=== PATIENT | female | born 1950 | race Caucasian/White ===

== ENCOUNTER 2019-02-03 06:52 | Outpatient (CLI) | payer MEDICARE, MEDICAID | END 2019-02-03 06:53 | disposition critical access hospital (66) | LOC: EMS 06:52 | PROVIDERS: ATTEND Surgery | DX: R06.00 Dyspnea, unspecified (principal); R51 Headache | CPT/HCPCS: A0425; A0427 ==

== ENCOUNTER 2019-02-03 07:11 | Inpatient (IN) | payer MEDICARE, MEDICAID ==
[2019-02-03] MEDS ORDERED: CEFEPIME 2 GM in SODIUM CHLORIDE 0.9% MINIBAG 100 ML IV STA (07:18)
[2019-02-03] MEDS ORDERED: DEXAMETHASONE 10 MG/ML VIAL IVP STA (07:19)
[2019-02-03] MEDS ORDERED: PROCHLORPERAZINE 10 MG/2 ML VIAL IVP STA (07:20)
[2019-02-03] MEDS ORDERED: KETOROLAC 30 MG/ML VIAL IVP STA (07:20)
[2019-02-03] MEDS ORDERED: diphenhydrAMINE INJ 50 MG/ML VIAL IVP STA (07:20)
[2019-02-03] MEDS ORDERED: ALBUTEROL NEB 2.5 MG/3 ML INH STA ×2 (07:21→11:27)
--- NOTE | 2019-02-03 07:24 | ED Physician Documentation ---
PD HPI DYSPNEA - Stated complaint Stated Complaint: SOA - Chief complaint Chief Complaint: Resp - History obtained from History obtained from: Patient - History of Present Illness Timing - onset: How many days ago (3) Timing - onset during: Rest Timing - duration: Days (3) Timing - details: Gradual onset, Still present Inciting event(s): URI Improved by: O2, Inhaler/neb Worsened by: Exertion, Coughing Associated symptoms: Fever, Cough, Wheezing, Other (headache) Similar symptoms before: Diagnosis (COPD) Recently seen: Not recently seen - Additional information Additional information: 68-year-old female with a history of COPD who is a resident of [facility] has developed a cough congestion and fever over the past 3 days. She now has a migraine headache as well. She is brought to the hospital by ambulance with hypoxia and tachycardia with a DuoNeb treatment running. She has some improvement with the DuoNeb. Review of Systems Constitutional: reports: Fever Eyes: denies: Decreased vision Ears: denies: Ear pain Nose: reports: Rhinorrhea / runny nose, Congestion Throat: reports: Sore throat Cardiac: denies: Chest pain / pressure, Palpitations, Pedal edema, Calf pain Respiratory: reports: Dyspnea, Cough, Wheezing GI: reports: Nausea. denies: Abdominal Pain, Vomiting, Diarrhea : denies: Dysuria, Frequency Skin: denies: Rash Musculoskeletal: denies: Neck pain, Back pain, Extremity pain Neurologic: reports: Headache. denies: Generalized weakness, Focal weakness, Numbness, Head injury, LOC PD PAST MEDICAL HISTORY - Past Medical History Cardiovascular: Hypertension Respiratory: COPD Neuro: Migraines Endocrine/Autoimmune: HyPOthyroidism GI: GERD Psych: Depression, Other (psychosis) - Past Surgical History General: Gastric surgery (for ruptured ulcer) - Allergies Allergies/Adverse Reactions: Allergies Allergy/AdvReac Type Severity Reaction Status Date / Time Penicillins Allergy Unknown Verified 02/03/19 07:20 PD ED PE NORMAL - Vitals Vital signs reviewed: Yes (febrile, tachy, hypertensive and hypoxic) - General General: Alert and oriented X 3, Well developed/nourished, Other (able to speak in 2-3 word sentences. 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, No motor deficit, No sensory deficit, Normal speech Eye Opening: Spontaneous Motor: Obeys Commands Verbal: Oriented GCS Score: 15 - Psych Psych: Other (mood is foul affect is angry) Results - Vitals Vitals: Vital Signs - 24 hr 02/03/19 02/03/19 02/03/19 07:14 07:39 07:57 Temperature 37.8 C H Heart Rate 120 H 114 H 112 H Respiratory 24 26 H 26 H Rate Blood Pressure 166/84 H 156/79 H O2 Saturation 88 L 96 02/03/19 02/03/19 02/03/19 08:20 09:25 09:43 Temperature Heart Rate 116 H 105 H 104 H Respiratory 22 24 20 Rate Blood Pressure 141/80 H 137/76 H O2 Saturation 94 100 02/03/19 02/03/19 02/03/19 10:33 11:21 11:33 Temperature Heart Rate 108 H 103 H 101 H Respiratory 21 18 19 Rate Blood Pressure 129/72 120/72 118/77 O2 Saturation 92 77 L 95 02/03/19 02/03/19 11:47 12:15 Temperature 37.2 C Heart Rate 101 H 104 H Respiratory 22 20 Rate Blood Pressure 113/83 H O2 Saturation 97 97 Oxygen O2 Source Nasal cannula Oxygen Flow Rate 2 - Labs Labs: Laboratory Tests 02/03/19 02/03/19 02/03/19 07:43 07:43 08:22 WBC 15.1 H RBC 4.55 Hgb 14.3 Hct 44.9 MCV 98.7 MCH 31.4 H MCHC 31.8 L RDW 12.3 Plt Count 328 MPV 9.1 Neut # (Auto) 12.6 H Lymph # (Auto) 0.8 L Mathews # (Auto) 1.5 H Eos # (Auto) 0.1 Baso # (Auto) 0.1 Absolute Nucleated RBC 0.00 Nucleated RBC % 0.0 Sodium 131 L Potassium 4.1 Chloride 91 L Carbon Dioxide 28 Anion Gap 12.0 BUN 10 Creatinine 0.7 Estimated GFR (MDRD) 83 L Glucose 148 H Lactic Acid 0.6 Calcium 9.5 Total Bilirubin 0.3 AST 20 ALT < 10 L Alkaline Phosphatase 104 Total Protein 8.3 H Albumin 4.2 Globulin 4.1 Albumin/Globulin Ratio 1.0 - Rads (name of study) chest 2 view Radiology: Prelim report reviewed (Impression: Chronic appearing interstitial changes. No discrete consolidations identified.), EMP read indepedently, See rad report PD MEDICAL DECISION MAKING - ED course Complexity details: reviewed results, re-evaluated patient, considered differential, d/w patient ED course: 68-year-old female with a history of COPD has had a cough and coughing paroxysms as well as shortness of breath weakness and a migraine headache. She arrives to the emergency department with hypoxia and inspritory and expiratory wheezing. She is treated in the emergency department for her headache with a cocktail consisting of saline Toradol Decadron Compazine and Benadryl. Her headache improves. Her breathing remains an issue and she is administered an albuterol treatment as well as a DuoNeb treatment and she has received a DuoNeb treatment in route. She has improvement overall but remains hypoxic on room air. Departure - Departure Disposition: 67 [facility] DC/Xfer Clinical Impression: COPD exacerbation Migraine Qualifiers: Migraine type: without aura Status migrainosus presence: without status migrainosus Intractability: not intractable Qualified Code(s): G43.009 - Syed napoleon without aura, not intractable, without status migrainosus Condition: Stable
--- NOTE | 2019-02-03 07:47 | XRAY Report ---
Reason: cough soa Procedure Date: 02/03/2019 Accession Number: [id number] / [id number] Procedure: XR - Chest 1 View X-Ray CPT Code: 98840 FULL RESULT: EXAM: CHEST RADIOGRAPHY EXAM DATE: 02/03/2019 07:29 AM CLINICAL HISTORY: Cough, SOA. Shortness of breath. COMPARISON: None. TECHNIQUE: 1 view. FINDINGS: Lungs/Pleura: Bilateral moderately prominent interstitial markings, potentially chronic. No discrete dense consolidations or pulmonary edema identified. Mediastinum: Within exam limitations, the cardiomediastinal contour is normal. Other: Numerous surgical clips midline and left upper abdomen. IMPRESSION: Chronic appearing interstitial changes. No discrete consolidations identified. RADIA
[2019-02-03 07:56] LABS: BASOPHILS # (AUTO) 0.1 10^3/uL (0.0-0.1); BASOPHILS % (AUTO) 0.3 %; EOSINOPHILS # (AUTO) 0.1 10^3/uL (0.0-0.7); EOSINOPHILS % (AUTO) 0.7 %; HGB - HEMOGLOBIN 14.3 g/dL (12.0-16.0); LYMPHOCYTES # (AUTO) 0.8 10^3/uL (1.5-3.5); MEAN CORPUSCULAR HEMOGLOBIN 31.4 pg (27.0-31.0); MEAN CORPUSCULAR HGB CONC 31.8 g/dL (32.0-36.0); MEAN CORPUSCULAR VOLUME 98.7 fL (81.0-99.0); MEAN PLATELET VOLUME 9.1 fL (7.9-10.8); MONOCYTES # (AUTO) 1.5 10^3/uL (0.0-1.0); MONOCYTES % (AUTO) 9.9 %; NEUTROPHILS # (AUTO) 12.6 10^3/uL (1.5-6.6); NEUTROPHILS % (AUTO) 83.4 %; PLT - PLATELET COUNT 328 10^3/uL (130-450); RED BLOOD COUNT 4.55 10^6/uL (4.20-5.40); RED CELL DISTRIBUTION WIDTH 12.3 % (12.0-15.0); WHITE BLOOD COUNT 15.1 x10^3/uL (4.8-10.8)
[2019-02-03 08:06] LABS: ALBUMIN 4.2 g/dL (3.2-5.5); ALKALINE PHOSPHATASE 104 IU/L (42-121); ALT ALANINE AMINOTRANSFERASE < 10 IU/L (10-60); AST ASPARTATE AMINOTRANSFERASE 20 IU/L (10-42); BILIRUBIN,TOTAL 0.3 mg/dL (0.2-1.0); BUN - BLOOD UREA NITROGEN 10 mg/dL (6-20); CALCIUM 9.5 mg/dL (8.5-10.3); CARBON DIOXIDE - CO2 28 mmol/L (21-32); CHLORIDE 91 mmol/L (101-111); CREATININE 0.7 mg/dL (0.4-1.0); GFR - MDRD 83 (>89); GLUCOSE 148 mg/dL (70-100); SODIUM 131 mmol/L (135-145); TOTAL PROTEIN 8.3 g/dL (6.7-8.2)
[2019-02-03] MEDS ORDERED: IPRATROPIUM/ALBUTEROL 3 ML NEB INH STA (09:12)
[2019-02-03] MEDS ORDERED: SODIUM CHLORIDE FLUSH 0.9% 10 ML SYRINGE IVP PRN (12:48)
[2019-02-03] MEDS ORDERED: PROCHLORPERAZINE 10 MG/2 ML VIAL IVP PRN (12:48)
[2019-02-03] MEDS ORDERED: IPRATROPIUM/ALBUTEROL 3 ML NEB INH PRN (12:55)
[2019-02-03] MEDS: methylPREDNISolone SUCCINATE 40 MG/ML VIAL IVP SCH ×2 (15:01→20:52)
[2019-02-03] MEDS: ACETAMINOPHEN 325 MG TABLET PO PRN ×2 (15:04→19:08)
[2019-02-03] MEDS ORDERED: ASPIRIN PO PRN (17:05)
[2019-02-03] MEDS ORDERED: ACETAMINOPHEN PO PRN (17:05)
[2019-02-03] MEDS ORDERED: CAFFEINE PO PRN (17:05)
[2019-02-03] MEDS: IPRATROPIUM/ALBUTEROL 3 ML NEB INH SCH ×2 (18:00→20:24)
[2019-02-03] MEDS: BUDESONIDE 0.5 MG/2 ML NEB INH SCH (18:00)
[2019-02-03 18:11] LABS: BILIRUBIN,URINE NEGATIVE (NEGATIVE); GLUCOSE, URINE (UA) NEGATIVE (NEGATIVE); KETONES,URINE (UA) NEGATIVE (NEGATIVE); LEUKOCYTE ESTERASE, URINE NEGATIVE (NEGATIVE); NITRITE,URINE NEGATIVE (NEGATIVE); OCCULT BLOOD,URINE NEGATIVE (NEGATIVE); PROTEIN,URINE NEGATIVE (NEGATIVE); UROBILINOGEN,URINE 0.2 (NORMAL) E.U./dL (NORMAL)
[2019-02-03 18:28] LABS: CLARITY,URINE CLEAR (CLEAR); WBC CLUMPS,URINE PRESENT
[2019-02-03 18:29] LABS: BACTERIA,URINE Rare /HPF (None Seen); RBC,URINE 0-5 /HPF (0-5); SQUAMOUS EPITHELIAL CELL,UR FEW Squamous (<= Few)
[2019-02-03 18:42] LABS: PT - PROTHROMBIN TIME 11.4 secs (9.9-12.6)
--- NOTE | 2019-02-03 18:52 | HISTORY & PHYSICAL EXAMINATION ---
DATE OF SERVICE: 02/03/2019 Physician: Joan Valente MD HISTORY OF PRESENT ILLNESS: This is a 68-year-old white female who lives in assisted living and has a history of COPD, is still a smoker, has a history of Parkinson's, depression, and hypothyroidism. She developed a cough as well as a low-grade fever over the past 3 days and was visibly more short of breath and came to the hospital by ambulance. In the emergency room, she was hypoxic with saturations on room air of 78%, tachycardic with heart rates of 103 and a low- grade fever. She was given a dose of IV steroids as well as nebulizer treatments x3 and remained short of breath, was desaturating when oxygen was removed and continued to have wheezing. Therefore, she is being admitted as an inpatient for further treatment. Other complaints were that she has migraine headache. PAST MEDICAL HISTORY: 1. Dementia, possibly. 2. COPD, and continues smoking. 3. Parkinson's disease. 4. Hypothyroidism. REVIEW OF SYSTEMS: A comprehensive review of systems was attempted, but patient is irritated and does not give me detailed answers and also cannot remember her past medical history. She denies any other major complaints other than listed above. ALLERGIES: PENICILLIN. MEDICATIONS Initially medication list said no medication and she did not know any medications that she what she was on. The pharmacist reached out to her PCP for medication list and then confirmed these with her pharmacy: 1. Albuterol inhaler p.r.n. and q.i.d. scheduled 2. Atrovent q.i.d. 3. Lovastatin 20 mg daily. 4. Zantac 150 mg b.i.d. 5. Ellipta inhaler daily. 6. Excedrin (containing aspirin, Tylenol and caffeine), 2 tablets b.i.d. p.r.n. 7. Bupropion 150 b.i.d. 8. Carbidopa/levodopa 25/100 mg 1 tablet t.i.d. 9. Vitamin D3 1000 units daily. 10. Colace 100 mg b.i.d. 11. Lasix 20 mg Friday, Friday, Friday. 12. Potassium 20 mEq daily. 13. Nortriptyline 30 mg every night. 14. Senna capsules daily. 15. Levothyroxine 25 mcg daily. FAMILY HISTORY: Noncontributory. SOCIAL HISTORY: She denies any alcohol intake whatsoever. She does admit to smoking, but did not tell me details. Other social history is not obtainable from her. PHYSICAL EXAMINATION GENERAL: Elderly white female. She is in mild respiratory distress, wearing oxygen, has audible wheezing across the room, has a wet cough and gives me brief 1 or 2 word answers and then rolls away from me, in her bed. VITAL SIGNS: Blood pressure 120/60, heart rate 103 in sinus tachycardia, temperature 37.8 in the emergency room, respiratory rate 20, O2 saturation 93% on 2 liters nasal cannula oxygen. HEENT: Reveals leathery skin, normal oral mucosa, which is moist. NECK: Positive JVD in a supine position. CHEST: Increased AP diameter and wheezing in all lung john, anteriorly and posteriorly. HEART: Heart sounds are distant. ABDOMEN: Soft, nontender. EXTREMITIES: No clubbing, cyanosis or edema. NEUROLOGIC: Grossly intact, but her mood is abnormal. LABORATORY DATA: Sodium 131, potassium 4.1, BUN 10, creatinine 0.7. Lactic acid 0.6. Liver tests normal. Albumin 4.2. No INR was done. White blood count 15.1, hemoglobin 14.3 with MCV of 98, RDW 12.3, normal platelets of 328. Urinalysis is pending. CHEST X-RAY: Mild interstitial changes. No EKG was done and telemetry shows sinus tachycardia. IMPRESSION/DIAGNOSES 1. Chronic obstructive pulmonary disease exacerbation. 2. Hypoxia. 3. Migraine headache. 4. History of Parkinson's disease. 5. History of hypothyroidism. 6. Possible dementia. PLAN: Admit patient to medical/surgical bed, telemetry, continue with management of her COPD exacerbation, using IV steroids, scheduled and p.r.n. nebulizers, Mucinex. Obtain sputum culture, obtain a followup chest x-ray. Depending on findings on the CXR or sputum, she may need antibiotics for treatment of bronchitis if there are significant bacteria. Continue with her medications for Hypothyroidism and Parkinson's and pain medications for her migraine. It is unclear why she is on Lasix with potassium replacement. I will order an EKG and an Echo for establishing if she might have cor pulmonale to neeed Lasix. CODE STATUS: FULL CODE. This was reviewed with patient and she insists on this status. DEEP VENOUS THROMBOSIS PROPHYLAXIS: SCDs. ATTESTATION: Patient is expected to be discharged or transferred to another facility within 96 hours: Yes. TD: 02/03/2019 18:23 MTDDonna
[2019-02-03] MEDS: FUROSEMIDE 20 MG TABLET PO SCH (19:13)
[2019-02-03] MEDS: NICOTINE 14 MG PATCH TOP SCH (19:53)
[2019-02-03] MEDS ORDERED: ACETAMINOPHEN 325 MG TABLET PO PRN (20:20)
[2019-02-03] MEDS: NORTRIPTYLINE 10 MG CAPSULE PO SCH (20:47)
[2019-02-03] MEDS: FAMOTIDINE 20 MG TABLET PO SCH (20:47)
[2019-02-03] MEDS: GABAPENTIN 100 MG CAPSULE PO SCH (20:48)
[2019-02-03] MEDS: DOCUSATE SODIUM 100 MG CAPSULE PO SCH (20:48)
[2019-02-03] MEDS: buPROPion XL 150 MG TABLET PO SCH (20:48)
[2019-02-03] MEDS: guaiFENesin 600 MG TABLET PO SCH (20:48)
[2019-02-03] MEDS: SODIUM CHLORIDE FLUSH 0.9% 10 ML SYRINGE IVP SCH ×2 (20:52→23:39)
[2019-02-03] MEDS: CARBIDOPA/LEVODOPA 25 MG/100 MG TABLET PO SCH (20:57)
[2019-02-04 05:27] LABS: BASOPHILS % (AUTO) 0.1 %; LYMPHOCYTES # (AUTO) 0.6 10^3/uL (1.5-3.5); LYMPHOCYTES % (AUTO) 7.3 %; MEAN CORPUSCULAR HEMOGLOBIN 31.4 pg (27.0-31.0); MEAN CORPUSCULAR HGB CONC 32.6 g/dL (32.0-36.0); MEAN CORPUSCULAR VOLUME 96.3 fL (81.0-99.0); MEAN PLATELET VOLUME 9.3 fL (7.9-10.8); MONOCYTES # (AUTO) 0.7 10^3/uL (0.0-1.0); MONOCYTES % (AUTO) 7.9 %; NEUTROPHILS # (AUTO) 7.1 10^3/uL (1.5-6.6); NEUTROPHILS % (AUTO) 84.2 %; PLT - PLATELET COUNT 282 10^3/uL (130-450); RED BLOOD COUNT 3.82 10^6/uL (4.20-5.40); RED CELL DISTRIBUTION WIDTH 12.2 % (12.0-15.0); WHITE BLOOD COUNT 8.4 x10^3/uL (4.8-10.8)
[2019-02-04 05:31] LABS: CREATININE 0.7 mg/dL (0.4-1.0)
[2019-02-04] MEDS: CARBIDOPA/LEVODOPA 25 MG/100 MG TABLET PO SCH ×3 (05:35→20:44)
[2019-02-04] MEDS: methylPREDNISolone SUCCINATE 40 MG/ML VIAL IVP SCH (07:13)
--- NOTE | 2019-02-04 07:42 | XRAY Report ---
Reason: F/U bronchitis vs pneumonia Procedure Date: 02/04/2019 Accession Number: [id number] / [id number] Procedure: XR - Chest 1 View X-Ray CPT Code: 10441 FULL RESULT: EXAM: CHEST RADIOGRAPHY EXAM DATE: 02/04/2019 06:22 AM. CLINICAL HISTORY: F/U bronchitis vs pneumonia. COMPARISON: CHEST 1 VIEW 02/03/2019 7:16 AM. TECHNIQUE: 1 view. FINDINGS: Lungs/Pleura: Increased lung markings. Small bibasilar opacities. No effusions. Mediastinum: Stable Other: Surgical clips over the upper abdomen. Old right rib fractures. IMPRESSION: 1. Stable chest. 2. Airways disease. 3. Bibasilar subsegmental atelectasis or scarring RADIA
[2019-02-04] MEDS: IPRATROPIUM/ALBUTEROL 3 ML NEB INH SCH ×4 (07:58→18:25)
[2019-02-04] MEDS: BUDESONIDE 0.5 MG/2 ML NEB INH SCH ×2 (07:58→18:25)
[2019-02-04] MEDS ORDERED: AZITHROMYCIN 250 MG TABLET PO SCH (08:13)
[2019-02-04] MEDS: BUTALB/ACETAM/CAFF 50/325/40MG TABLET PO PRN ×4 (08:43→20:44)
[2019-02-04] MEDS: GABAPENTIN 100 MG CAPSULE PO SCH ×2 (08:44→20:42)
[2019-02-04] MEDS: POTASSIUM CHLORIDE 20 MEQ TABLET PO SCH (08:45)
[2019-02-04] MEDS: SENNA 8.6 MG TABLET PO SCH (08:46)
[2019-02-04] MEDS: DOCUSATE SODIUM 100 MG CAPSULE PO SCH ×2 (08:46→20:40)
[2019-02-04] MEDS: guaiFENesin 600 MG TABLET PO SCH ×2 (08:46→20:43)
[2019-02-04] MEDS: FAMOTIDINE 20 MG TABLET PO SCH ×2 (08:46→20:42)
[2019-02-04] MEDS: CHOLECALCIFEROL 1,000 UNIT TABLET PO SCH ×2 (08:46→08:47)
[2019-02-04] MEDS: POLYETHYLENE GLYCOL 3350 17 GM PACKET PO SCH (08:47)
[2019-02-04] MEDS: buPROPion XL 150 MG TABLET PO SCH ×2 (08:47→20:40)
[2019-02-04] MEDS: NICOTINE 14 MG PATCH TOP SCH (08:48)
[2019-02-04] MEDS: SODIUM CHLORIDE FLUSH 0.9% 10 ML SYRINGE IVP SCH ×3 (08:49→17:32)
[2019-02-04] MEDS ORDERED: LEVOTHYROXINE 25 MCG TABLET PO SCH (09:00)
[2019-02-04] MEDS: BENZOCAINE/MENTHOL LOZENGE MM PRN ×3 (11:53→16:54)
[2019-02-04] MEDS: predniSONE 20 MG TABLET PO SCH (12:38)
[2019-02-04] MEDS: MORPHINE 2 MG/ML CARPUJECT IVP PRN ×2 (15:44→17:31)
--- NOTE | 2019-02-04 17:24 | PROVIDER PROGRESS NOTE ---
Assessment/Plan - Problem List (1) COPD exacerbation Assessment/Plan: Will continue nebs and steroids. Conitnue Mucinex for pulmonary toilet. Continue empiric Zpak for bronchitis and productive cough (2) Urinary retention with incomplete bladder emptying Assessment/Plan: Mendoza catheter ordered since she had distress from not being able to urinate. (3) Hypothyroidism Assessment/Plan: assess TSH, continue her thyroid med (4) Parkinsons disease Assessment/Plan: She claims this is an incorrect Dx. I will review records or call her PCP. - Current Meds Current Meds: Current Medications Generic Name Dose Route Start Last Admin Trade Name Freq PRN Reason Stop Dose Admin Acetaminophen/Butalbital/Caffeine 1 tab 02/03/19 20:18 02/04/19 15:08 Fioricet PO 1 tab Q4HR PRN Administration HEADACHE Albuterol/Ipratropium 3 ml 02/03/19 15:00 02/04/19 15:20 Duoneb INH 3 ml RTQID JUAN MANUEL Administration Budesonide 0.5 mg 02/03/19 19:00 02/04/19 07:58 Pulmicort INH 0.5 mg RTBID JUAN MANUEL Administration Bupropion HCl 150 mg 02/03/19 21:00 02/04/19 08:47 Wellbutrin Xl PO 150 mg BID JUAN MANUEL Administration Carbidopa/Levodopa 1 tab 02/03/19 22:00 02/04/19 15:08 Sinemet 25 Mg/100 Mg PO 1 tab TID JUAN MANUEL Administration Cholecalciferol 1,000 unit 02/04/19 09:00 02/04/19 08:47 Vitamin D3 PO 1,000 unit DAILY JUAN MANUEL Administration Docusate Sodium 100 mg 02/03/19 21:00 02/04/19 08:46 Colace 100mg Capsule PO 100 mg BID JUAN MANUEL Administration Famotidine 20 mg 02/03/19 21:00 02/04/19 08:46 Pepcid PO 20 mg BID JUAN MANUEL Administration Furosemide 20 mg 02/03/19 18:00 02/03/19 19:13 Lasix PO 20 mg MOWEFR JUAN MANUEL Administration Gabapentin 200 mg 02/03/19 21:00 02/04/19 08:44 Neurontin PO 200 mg BID JUAN MANUEL Administration Guaifenesin 600 mg 02/03/19 21:00 02/04/19 08:46 Mucinex PO 600 mg BID JUAN MANUEL Administration Levothyroxine Sodium 25 mcg 02/04/19 09:00 02/04/19 08:44 Synthroid PO 25 mcg DAILY JUAN MANUEL Administration Morphine Sulfate 1 mg 02/04/19 15:35 02/04/19 15:44 Morphine (Carpuject) IVP 1 mg Q2HR PRN Administration Dyspnea Nicotine 1 patch 02/03/19 19:06 02/04/19 08:48 Nicoderm TOP 1 patch DAILY JUAN MANUEL Administration Nortriptyline HCl 30 mg 02/03/19 21:00 02/03/19 20:47 Pamelor PO 30 mg QPM JUAN MANUEL Administration Polyethylene Glycol 17 gm 02/04/19 09:00 02/04/19 08:47 Miralax PO 17 gm DAILY JUAN MANUEL Administration Potassium Chloride 20 meq 02/04/19 09:00 02/04/19 08:45 K-Dur PO 20 meq DAILY JUAN MANUEL Administration Prednisone 20 mg 02/04/19 12:00 02/04/19 12:38 Deltasone PO 20 mg DAILYWM JUAN MANUEL Administration Senna 8.6 mg 02/04/19 09:00 02/04/19 08:46 Senokot PO 8.6 mg DAILY JUAN MANUEL Administration Sodium Chloride 10 ml 02/03/19 12:48 02/03/19 15:01 Normal Saline Flush 0.9% IVP 10 ml PRN PRN Administration NEEDED PER PROVIDER ORDERS Sodium Chloride 10 ml 02/03/19 17:00 02/04/19 15:48 Normal Saline Flush 0.9% IVP 10 ml 0100,0900,1700 JUAN MANUEL Administration Throat Lozenges 1 lozenge 02/04/19 11:26 02/04/19 16:54 Cepacol MM 1 lozenge Q2HR PRN Administration Throat pain - Lab Result Fish Bone Diagrams: 02/05/19 05:55 02/05/19 05:48 - Additional Planning My Orders: My Active Orders 02/03/19 17:00 Sodium Chloride Flush 0.9% [Normal Saline Flush 0.9%] 10 ml IVP 0100,0900,1700 02/03/19 17:05 Patient Own Med [Patient Own Medication] 2 each PO BID PRN 02/03/19 17:59 Nebulizer/MDI Tx. [RC] .QID 02/03/19 18:00 Furosemide [Lasix] 20 mg PO MOWEFR 02/03/19 19:00 Budesonide [Pulmicort] 0.5 mg INH RTBID 02/03/19 19:06 Nicotine 14 mg Patch [Nicoderm] 1 patch TOP DAILY 02/03/19 21:00 Docusate Sodium 100Mg Capsule [Colace 100Mg Capsule] 100 mg PO BID Famotidine [Pepcid] 20 mg PO BID Gabapentin [Neurontin] 200 mg PO BID Nortriptyline [Pamelor] 30 mg PO QPM buPROPion [Wellbutrin Xl] 150 mg PO BID guaiFENesin [Mucinex] 600 mg PO BID 02/03/19 22:00 Carbidopa/Levodopa 25/100 [Sinemet 25 mg/100 mg] 1 tab PO TID 02/04/19 Evaluate and Treat PT [PT] Routine 02/04/19 08:00 Echo Transthoracic Complete [ECHO] Routine 02/04/19 09:00 Cholecalciferol [Vitamin D3] 1,000 unit PO DAILY Levothyroxine [Synthroid] 25 mcg PO DAILY Polyethylene Glycol 3350 [Miralax] 17 gm PO DAILY Potassium Chloride [K-Dur] 20 meq PO DAILY Senna [Senokot] 8.6 mg PO DAILY 02/04/19 11:26 Benzocaine/Menthol [Cepacol] 1 lozenge MM Q2HR PRN 02/04/19 12:00 predniSONE [Deltasone] 20 mg PO DAILYWM 02/04/19 15:35 Morphine Inj (Carpuject) [Morphine (Carpuject)] 1 mg IVP Q2HR PRN 02/05/19 05:00 BMP - BASIC METABOLIC PANEL [CHEM] DAILYLAB CBC - COMP BLD CT W/AUTO DIFF [HEME] DAILYLAB 02/05/19 09:00 Azithromycin [Zithromax] 250 mg PO DAILY Subjective - Subjective Patient Reports: Other (Wheezing audibly during a neb treatment, feels SOB even on O2) Nursing Reports: Confused Objective Vital Signs: Vital Signs - 24 hr 02/03/19 02/03/19 02/03/19 18:00 20:05 20:26 Temperature 36.7 C Heart Rate 101 H 99 Heart Rate [ 107 H Brachial] Heart Rate [ Sitting] Respiratory 20 18 16 Rate Blood Pressure 115/56 L [Right Brachial artery] Blood Pressure [Sitting] O2 Saturation 92 09/25/19 09/26/19 09/26/19 23:43 04:30 05:21 Temperature 36.3 C L 36.9 C 36.9 C Heart Rate 92 Heart Rate [ 88 92 Brachial] Heart Rate [ Sitting] Respiratory 19 18 18 Rate Blood Pressure 120/58 L 104/54 L [Right Brachial artery] Blood Pressure [Sitting] O2 Saturation 100 97 97 02/04/19 02/04/19 02/04/19 07:59 08:50 11:33 Temperature 36.8 C Heart Rate 93 104 H Heart Rate [ 100 Brachial] Heart Rate [ Sitting] Respiratory 20 17 18 Rate Blood Pressure 105/53 L [Right Brachial artery] Blood Pressure [Sitting] O2 Saturation 88 L 02/04/19 02/04/19 02/04/19 11:35 13:00 15:24 Temperature 36.7 C Heart Rate 104 H Heart Rate [ 107 H Brachial] Heart Rate [ 102 H Sitting] Respiratory 16 20 Rate Blood Pressure 130/60 [Right Brachial artery] Blood Pressure 119/57 L [Sitting] O2 Saturation 100 02/04/19 15:40 Temperature 36.7 C Heart Rate Heart Rate [ 107 H Brachial] Heart Rate [ Sitting] Respiratory 22 Rate Blood Pressure 130/60 [Right Brachial artery] Blood Pressure [Sitting] O2 Saturation 94 Oxygen O2 Source Nasal cannula Oxygen Flow Rate 2 I&O (Last 24 Hrs): Intake and Output Totals x24h 02/02/19 02/03/19 02/04/19 23:59 23:59 23:59 Intake Total 720 330 Output Total 650 1325 Balance 70 -995 General: Alert HEENT: Mucous membr. moist/pink Neck: Supple Neuro: Disoriented Cardiovascular: Regular rate Respiratory: Other (Diffuse wheezing) Abdomen: Soft Extremities: No edema - Results Results: Laboratory Results WBC 8.4 x10^3/uL (4.8-10.8) 02/04/19 05:05 RBC 3.82 10^6/uL (4.20-5.40) L 02/04/19 05:05 Hgb 12.0 g/dL (12.0-16.0) 02/04/19 05:05 Hct 36.8 % (37.0-47.0) L 02/04/19 05:05 MCV 96.3 fL (81.0-99.0) 02/04/19 05:05 MCH 31.4 pg (27.0-31.0) H 02/04/19 05:05 MCHC 32.6 g/dL (32.0-36.0) 02/04/19 05:05 RDW 12.2 % (12.0-15.0) 02/04/19 05:05 Plt Count 282 10^3/uL (130-450) 02/04/19 05:05 MPV 9.3 fL (7.9-10.8) 02/04/19 05:05 Neut # (Auto) 7.1 10^3/uL (1.5-6.6) H 02/04/19 05:05 Lymph # (Auto) 0.6 10^3/uL (1.5-3.5) L 02/04/19 05:05 [place] # (Auto) 0.7 10^3/uL (0.0-1.0) 02/04/19 05:05 Eos # (Auto) 0.0 10^3/uL (0.0-0.7) 02/04/19 05:05 Baso # (Auto) 0.0 10^3/uL (0.0-0.1) 02/04/19 05:05 Absolute Nucleated RBC 0.00 x10^3/uL 02/04/19 05:05 Nucleated RBC % 0.0 /100WBC 02/04/19 05:05 PT 11.4 secs (9.9-12.6) 02/03/19 08:22 INR 1.0 (0.8-1.2) 02/03/19 08:22 Sodium 136 mmol/L (135-145) 02/04/19 05:05 Potassium 4.4 mmol/L (3.5-5.0) 02/04/19 05:05 Chloride 96 mmol/L (101-111) L 02/04/19 05:05 Carbon Dioxide 32 mmol/L (21-32) 02/04/19 05:05 Anion Gap 8.0 (6-13) 02/04/19 05:05 BUN 19 mg/dL (6-20) 02/04/19 05:05 Creatinine 0.7 mg/dL (0.4-1.0) 02/04/19 05:05 Estimated GFR (MDRD) 83 (>89) L 02/04/19 05:05 Glucose 158 mg/dL (70-100) H 02/04/19 05:05 Lactic Acid 0.6 mmol/L (0.5-2.2) 02/03/19 08:22 Calcium 9.0 mg/dL (8.5-10.3) 02/04/19 05:05 Total Bilirubin 0.3 mg/dL (0.2-1.0) 02/03/19 07:43 AST 20 IU/L (10-42) 02/03/19 07:43 ALT < 10 IU/L (10-60) L 02/03/19 07:43 Alkaline Phosphatase 104 IU/L (42-121) 02/03/19 07:43 Total Protein 8.3 g/dL (6.7-8.2) H 02/03/19 07:43 Albumin 4.2 g/dL (3.2-5.5) 02/03/19 07:43 Globulin 4.1 g/dL (2.1-4.2) 02/03/19 07:43 Albumin/Globulin Ratio 1.0 (1.0-2.2) 02/03/19 07:43 TSH 0.11 uIU/mL (0.34-5.60) L 02/04/19 05:05 Urine Color YELLOW 02/03/19 16:25 Urine Clarity CLEAR (CLEAR) 02/03/19 16:25 Urine pH 6.0 PH (5.0-7.5) 02/03/19 16:25 Ur Specific [place] 1.010 (1.002-1.030) 02/03/19 16:25 Urine Protein NEGATIVE mg/dL (NEGATIVE) 02/03/19 16:25 Urine Glucose (UA) NEGATIVE mg/dL (NEGATIVE) 02/03/19 16:25 Urine Ketones NEGATIVE mg/dL (NEGATIVE) 02/03/19 16:25 Urine Occult Blood NEGATIVE (NEGATIVE) 02/03/19 16:25 Urine Nitrite NEGATIVE (NEGATIVE) 02/03/19 16:25 Urine Bilirubin NEGATIVE (NEGATIVE) 02/03/19 16:25 Urine Urobilinogen 0.2 (NORMAL) E.U./dL (NORMAL) 02/03/19 16:25 Ur Leukocyte Esterase NEGATIVE (NEGATIVE) 02/03/19 16:25 Urine RBC 0-5 /HPF (0-5) 02/03/19 16:25 Urine WBC 4-5 /HPF (0-5) 02/03/19 16:25 Urine WBC Clumps PRESENT 02/03/19 16:25 Ur Squamous Epith Cells FEW Squamous (<= Few) 02/03/19 16:25 Urine Bacteria Rare /HPF (None Seen) 02/03/19 16:25 Urine Culture Comments NOT INDICATED 02/03/19 16:25
[2019-02-04] MEDS: NORTRIPTYLINE 10 MG CAPSULE PO SCH (20:44)
[2019-02-05] MEDS: CARBIDOPA/LEVODOPA 25 MG/100 MG TABLET PO SCH ×3 (05:49→21:39)
[2019-02-05 06:04] LABS: BASOPHILS % (AUTO) 0.3 %; EOSINOPHILS % (AUTO) 0.3 %; HGB - HEMOGLOBIN 11.6 g/dL (12.0-16.0); LYMPHOCYTES # (AUTO) 1.8 10^3/uL (1.5-3.5); LYMPHOCYTES % (AUTO) 17.2 %; MEAN CORPUSCULAR HEMOGLOBIN 31.4 pg (27.0-31.0); MEAN CORPUSCULAR HGB CONC 32.1 g/dL (32.0-36.0); MEAN CORPUSCULAR VOLUME 97.8 fL (81.0-99.0); MONOCYTES # (AUTO) 1.6 10^3/uL (0.0-1.0); MONOCYTES % (AUTO) 15.2 %; NEUTROPHILS # (AUTO) 7.1 10^3/uL (1.5-6.6); NEUTROPHILS % (AUTO) 66.5 %; PLT - PLATELET COUNT 261 10^3/uL (130-450); RED BLOOD COUNT 3.69 10^6/uL (4.20-5.40); RED CELL DISTRIBUTION WIDTH 12.3 % (12.0-15.0); WHITE BLOOD COUNT 10.7 x10^3/uL (4.8-10.8)
[2019-02-05 06:10] LABS: CREATININE 0.6 mg/dL (0.4-1.0)
[2019-02-05] MEDS: BUDESONIDE 0.5 MG/2 ML NEB INH SCH ×2 (08:52→19:52)
[2019-02-05] MEDS: IPRATROPIUM/ALBUTEROL 3 ML NEB INH SCH ×4 (08:52→19:51)
[2019-02-05] MEDS: GABAPENTIN 100 MG CAPSULE PO SCH ×2 (09:42→20:32)
[2019-02-05] MEDS: predniSONE 20 MG TABLET PO SCH (09:42)
[2019-02-05] MEDS: DOCUSATE SODIUM 100 MG CAPSULE PO SCH ×2 (09:42→20:32)
[2019-02-05] MEDS: POTASSIUM CHLORIDE 20 MEQ TABLET PO SCH (09:42)
[2019-02-05] MEDS: guaiFENesin 600 MG TABLET PO SCH ×2 (09:42→20:32)
[2019-02-05] MEDS: AZITHROMYCIN 250 MG TABLET PO SCH (09:43)
[2019-02-05] MEDS: NICOTINE 14 MG PATCH TOP SCH (09:43)
[2019-02-05] MEDS: FAMOTIDINE 20 MG TABLET PO SCH ×2 (09:43→20:32)
[2019-02-05] MEDS: SENNA 8.6 MG TABLET PO SCH (09:43)
[2019-02-05] MEDS: POLYETHYLENE GLYCOL 3350 17 GM PACKET PO SCH (09:43)
[2019-02-05] MEDS: buPROPion XL 150 MG TABLET PO SCH ×2 (09:45→20:34)
[2019-02-05] MEDS: MORPHINE 2 MG/ML CARPUJECT IVP PRN (10:40)
[2019-02-05] MEDS ORDERED: SODIUM CHLORIDE FLUSH 0.9% 10 ML SYRINGE ONE (10:56)
--- NOTE | 2019-02-05 11:13 | PROVIDER PROGRESS NOTE ---
Assessment/Plan - Problem List (1) COPD exacerbation Assessment/Plan: Continue nebs, steroids (oral Prednisone since she wishes no iv) Conitnue Mucinex for pulmonary toilet. Check CXR for any blossoning of a pneumonia Await sputum sample results. Treat empirically with antibiotics for bacterial bronchitis. (2) Urinary retention with incomplete bladder emptying Assessment/Plan: Continue Mendoza today while she is in respiratory distress, poss out tomorrow (3) Hypothyroidism Assessment/Plan: Her TSH was checked and is actually abnormally low, indicating that she is on an excessive dose of Synthroid. Will decrease her daily Synthroid dose from 25 mcg daily to 12.5 mcg daily. (4) Parkinsons disease Assessment/Plan: The patient claims she does not have Parkinson's disorder, she also does not appear stiff or have a flat affect or any tremor. The diagnosis is present on her assisted-living assessment. She requests that this diagnosis be taken off of her record if it is incorrect. I will reach out to her PCP or her living facility for confirmation (5) Alcohol-induced persisting dementia Assessment/Plan: We finally received records to confirm her past history. These were received from [facility], in the form of an assisted living full assessment. She has alcohol induced dementia, but no longer drinks alcohol. (6) Tobacco abuse Assessment/Plan: She smokes about 4 times a day, according to the records from her assisted living facility. She was started on nicotine patch at admission (7) Vision decreased Assessment/Plan: Chronic, from cataracts and macular degeneration. She occaisionally needs to be cued to where food is on her plate at [facility]. - Current Meds Current Meds: Current Medications Generic Name Dose Route Start Last Admin Trade Name Freq PRN Reason Stop Dose Admin Acetaminophen/Butalbital/Caffeine 1 tab 02/03/19 20:18 02/04/19 20:44 Fioricet PO 1 tab Q4HR PRN Administration HEADACHE Albuterol/Ipratropium 3 ml 02/03/19 15:00 02/05/19 08:52 Duoneb INH 3 ml RTQID JUAN MANUEL Administration Azithromycin 250 mg 02/05/19 09:00 02/05/19 09:43 Zithromax PO 02/07/19 00:01 250 mg DAILY JUAN MANUEL Administration Budesonide 0.5 mg 02/03/19 19:00 02/05/19 08:52 Pulmicort INH 0.5 mg RTBID JUAN MANUEL Administration Bupropion HCl 150 mg 02/03/19 21:00 02/05/19 09:45 Wellbutrin Xl PO 150 mg BID JUAN MANUEL Administration Carbidopa/Levodopa 1 tab 02/03/19 22:00 02/05/19 05:49 Sinemet 25 Mg/100 Mg PO 1 tab TID JUAN MANUEL Administration Cholecalciferol 1,000 unit 02/04/19 09:00 02/04/19 08:47 Vitamin D3 PO 1,000 unit DAILY JUAN MANUEL Administration Docusate Sodium 100 mg 02/03/19 21:00 02/05/19 09:42 Colace 100mg Capsule PO 100 mg BID JUAN MANUEL Administration Famotidine 20 mg 02/03/19 21:00 02/05/19 09:43 Pepcid PO 20 mg BID JUAN MANUEL Administration Furosemide 20 mg 02/03/19 18:00 02/03/19 19:13 Lasix PO 20 mg MOWEFR JUAN MANUEL Administration Gabapentin 200 mg 02/03/19 21:00 02/05/19 09:42 Neurontin PO 200 mg BID JUAN MANUEL Administration Guaifenesin 600 mg 02/03/19 21:00 02/05/19 09:42 Mucinex PO 600 mg BID JUAN MANUEL Administration Morphine Sulfate 1 mg 02/04/19 15:35 02/05/19 10:40 Morphine (Carpuject) IVP 1 mg Q2HR PRN Administration Dyspnea Nicotine 1 patch 02/03/19 19:06 02/05/19 09:43 Nicoderm TOP 1 patch DAILY JUAN MANUEL Administration Nortriptyline HCl 30 mg 02/03/19 21:00 02/04/19 20:44 Pamelor PO 30 mg QPM JUAN MANUEL Administration Polyethylene Glycol 17 gm 02/04/19 09:00 02/05/19 09:43 Miralax PO 17 gm DAILY JUAN MANUEL Administration Potassium Chloride 20 meq 02/04/19 09:00 02/05/19 09:42 K-Dur PO 20 meq DAILY JUAN MANUEL Administration Prednisone 20 mg 02/04/19 12:00 02/05/19 09:42 Deltasone PO 20 mg DAILYWM JUAN MANUEL Administration Senna 8.6 mg 02/04/19 09:00 02/05/19 09:43 Senokot PO 8.6 mg DAILY JUAN MANUEL Administration Throat Lozenges 1 lozenge 02/04/19 11:26 02/04/19 16:54 Cepacol MM 1 lozenge Q2HR PRN Administration Throat pain - Lab Result Fish Bone Diagrams: 02/05/19 05:55 02/05/19 05:48 - Additional Planning My Orders: My Active Orders 02/04/19 11:26 Benzocaine/Menthol [Cepacol] 1 lozenge MM Q2HR PRN 02/04/19 12:00 predniSONE [Deltasone] 20 mg PO DAILYWM 02/04/19 15:35 Morphine Inj (Carpuject) [Morphine (Carpuject)] 1 mg IVP Q2HR PRN 02/04/19 17:24 Mendoza Insertion [RC] QSHIFT 02/05/19 08:32 IV DC [IV Discontinuation] [RC] .ONCE Telemetry-Discontinue [RC] .ONCE 02/05/19 09:00 Azithromycin [Zithromax] 250 mg PO DAILY 02/06/19 07:00 Levothyroxine [Synthroid] 12.5 mcg PO QDAC Subjective - Subjective Patient Reports: Cough, Shortness of Breath Nursing Reports: Shortness of Breath, Other (Supplemental O2 needed) Objective Vital Signs: Vital Signs - 24 hr 02/04/19 02/04/19 02/04/19 11:33 11:35 13:00 Temperature 36.7 C Heart Rate 104 H Heart Rate [ 107 H Brachial] Heart Rate [ 102 H Sitting] Respiratory 18 16 Rate Blood Pressure 130/60 [Right Brachial artery] Blood Pressure 119/57 L [Sitting] O2 Saturation 100 02/04/19 02/04/19 02/04/19 15:24 15:40 18:26 Temperature 36.7 C Heart Rate 104 H 104 H Heart Rate [ 107 H Brachial] Heart Rate [ Sitting] Respiratory 20 22 20 Rate Blood Pressure 130/60 [Right Brachial artery] Blood Pressure [Sitting] O2 Saturation 94 02/04/19 02/04/19 02/05/19 20:47 23:30 05:00 Temperature 36.6 C 36.9 C 36.7 C Heart Rate Heart Rate [ 92 89 79 Brachial] Heart Rate [ Sitting] Respiratory 24 20 16 Rate Blood Pressure 129/70 113/61 108/63 [Right Brachial artery] Blood Pressure [Sitting] O2 Saturation 95 95 94 02/05/19 02/05/19 08:37 08:53 Temperature 36.3 C L Heart Rate 103 H Heart Rate [ 103 H Brachial] Heart Rate [ Sitting] Respiratory 20 36 H Rate Blood Pressure 106/59 L [Right Brachial artery] Blood Pressure [Sitting] O2 Saturation 90 L Oxygen O2 Source Nasal cannula Oxygen Flow Rate 2 I&O (Last 24 Hrs): Intake and Output Totals x24h 02/03/19 02/04/19 02/05/19 23:59 23:59 23:59 Intake Total 720 1136 440 Output Total 650 2700 [facility] Balance 70 -1561 -1533 General: Alert HEENT: Mucous membr. moist/pink Neck: Supple Neuro: Disoriented Cardiovascular: Regular rate Respiratory: Other (Rhochi diffuse, less prominent wheezing since yesterday) Abdomen: Soft Extremities: No edema - Results Results: Laboratory Results WBC 10.7 x10^3/uL (4.8-10.8) 02/05/19 05:55 RBC 3.69 10^6/uL (4.20-5.40) L 02/05/19 05:55 Hgb 11.6 g/dL (12.0-16.0) L 02/05/19 05:55 Hct 36.1 % (37.0-47.0) L 02/05/19 05:55 MCV 97.8 fL (81.0-99.0) 02/05/19 05:55 MCH 31.4 pg (27.0-31.0) H 02/05/19 05:55 MCHC 32.1 g/dL (32.0-36.0) 02/05/19 05:55 RDW 12.3 % (12.0-15.0) 02/05/19 05:55 Plt Count 261 10^3/uL (130-450) 02/05/19 05:55 MPV 9.0 fL (7.9-10.8) 02/05/19 05:55 Neut # (Auto) 7.1 10^3/uL (1.5-6.6) H 02/05/19 05:55 Lymph # (Auto) 1.8 10^3/uL (1.5-3.5) 02/05/19 05:55 [place] # (Auto) 1.6 10^3/uL (0.0-1.0) H 02/05/19 05:55 Eos # (Auto) 0.0 10^3/uL (0.0-0.7) 02/05/19 05:55 Baso # (Auto) 0.0 10^3/uL (0.0-0.1) 02/05/19 05:55 Absolute Nucleated RBC 0.00 x10^3/uL 02/05/19 05:55 Nucleated RBC % 0.0 /100WBC 02/05/19 05:55 PT 11.4 secs (9.9-12.6) 02/03/19 08:22 INR 1.0 (0.8-1.2) 02/03/19 08:22 Sodium 139 mmol/L (135-145) 02/05/19 05:48 Potassium 4.6 mmol/L (3.5-5.0) 02/05/19 05:48 Chloride 96 mmol/L (101-111) L 02/05/19 05:48 Carbon Dioxide 34 mmol/L (21-32) H 02/05/19 05:48 Anion Gap 9.0 (6-13) 02/05/19 05:48 BUN 16 mg/dL (6-20) 02/05/19 05:48 Creatinine 0.6 mg/dL (0.4-1.0) 02/05/19 05:48 Estimated GFR (MDRD) 100 (>89) 02/05/19 05:48 Glucose 95 mg/dL (70-100) 02/05/19 05:48 Lactic Acid 0.6 mmol/L (0.5-2.2) 02/03/19 08:22 Calcium 9.0 mg/dL (8.5-10.3) 02/05/19 05:48 Total Bilirubin 0.3 mg/dL (0.2-1.0) 02/03/19 07:43 AST 20 IU/L (10-42) 02/03/19 07:43 ALT < 10 IU/L (10-60) L 02/03/19 07:43 Alkaline Phosphatase 104 IU/L (42-121) 02/03/19 07:43 Total Protein 8.3 g/dL (6.7-8.2) H 02/03/19 07:43 Albumin 4.2 g/dL (3.2-5.5) 02/03/19 07:43 Globulin 4.1 g/dL (2.1-4.2) 02/03/19 07:43 Albumin/Globulin Ratio 1.0 (1.0-2.2) 02/03/19 07:43 TSH 0.11 uIU/mL (0.34-5.60) L 02/04/19 05:05 Urine Color YELLOW 02/03/19 16:25 Urine Clarity CLEAR (CLEAR) 02/03/19 16:25 Urine pH 6.0 PH (5.0-7.5) 02/03/19 16:25 Ur Specific [place] 1.010 (1.002-1.030) 02/03/19 16:25 Urine Protein NEGATIVE mg/dL (NEGATIVE) 02/03/19 16:25 Urine Glucose (UA) NEGATIVE mg/dL (NEGATIVE) 02/03/19 16:25 Urine Ketones NEGATIVE mg/dL (NEGATIVE) 02/03/19 16:25 Urine Occult Blood NEGATIVE (NEGATIVE) 02/03/19 16:25 Urine Nitrite NEGATIVE (NEGATIVE) 02/03/19 16:25 Urine Bilirubin NEGATIVE (NEGATIVE) 02/03/19 16:25 Urine Urobilinogen 0.2 (NORMAL) E.U./dL (NORMAL) 02/03/19 16:25 Ur Leukocyte Esterase NEGATIVE (NEGATIVE) 02/03/19 16:25 Urine RBC 0-5 /HPF (0-5) 02/03/19 16:25 Urine WBC 4-5 /HPF (0-5) 02/03/19 16:25 Urine WBC Clumps PRESENT 02/03/19 16:25 Ur Squamous Epith Cells FEW Squamous (<= Few) 02/03/19 16:25 Urine Bacteria Rare /HPF (None Seen) 02/03/19 16:25 Urine Culture Comments NOT INDICATED 02/03/19 16:25
[2019-02-05] MEDS: MULTIVITAMIN TABLET PO SCH (12:01)
[2019-02-05] MEDS: FUROSEMIDE 20 MG TABLET PO SCH (17:59)
[2019-02-05] MEDS: NORTRIPTYLINE 10 MG CAPSULE PO SCH (20:46)
[2019-02-06] MEDS ORDERED: SODIUM CHLORIDE FLUSH 0.9% 10 ML SYRINGE IVP SCH (06:00)
[2019-02-06] MEDS: LEVOTHYROXINE 25 MCG TABLET PO SCH (06:15)
[2019-02-06] MEDS: CARBIDOPA/LEVODOPA 25 MG/100 MG TABLET PO SCH ×3 (06:15→21:26)
[2019-02-06] MEDS: BUDESONIDE 0.5 MG/2 ML NEB INH SCH ×2 (08:10→19:14)
[2019-02-06] MEDS: IPRATROPIUM/ALBUTEROL 3 ML NEB INH SCH ×4 (08:10→19:14)
[2019-02-06] MEDS: MORPHINE 2 MG/ML CARPUJECT IVP PRN (08:39)
[2019-02-06] MEDS: guaiFENesin 600 MG TABLET PO SCH ×2 (08:44→21:24)
[2019-02-06] MEDS: POTASSIUM CHLORIDE 20 MEQ TABLET PO SCH (08:44)
[2019-02-06] MEDS: MULTIVITAMIN TABLET PO SCH (08:44)
[2019-02-06] MEDS: SENNA 8.6 MG TABLET PO SCH (08:44)
[2019-02-06] MEDS: CHOLECALCIFEROL 1,000 UNIT TABLET PO SCH (08:44)
[2019-02-06] MEDS: NICOTINE 14 MG PATCH TOP SCH (08:44)
[2019-02-06] MEDS: GABAPENTIN 100 MG CAPSULE PO SCH ×2 (08:44→21:25)
[2019-02-06] MEDS: POLYETHYLENE GLYCOL 3350 17 GM PACKET PO SCH (08:44)
[2019-02-06] MEDS: predniSONE 20 MG TABLET PO SCH (08:45)
[2019-02-06] MEDS: AZITHROMYCIN 250 MG TABLET PO SCH (08:45)
[2019-02-06] MEDS: buPROPion XL 150 MG TABLET PO SCH ×2 (08:45→21:28)
[2019-02-06] MEDS: DOCUSATE SODIUM 100 MG CAPSULE PO SCH ×2 (08:45→21:24)
[2019-02-06] MEDS: FAMOTIDINE 20 MG TABLET PO SCH ×2 (08:45→21:24)
--- NOTE | 2019-02-06 10:47 | PROVIDER PROGRESS NOTE ---
Assessment/Plan - Problem List (1) Pseudomonas aeruginosa infection Assessment/Plan: Sputum culture growing Pseudomonas. Will change Zithromax to Cipro orally. Repeat CXRs have not shown any new infiltrate Continue Mucinex for pulmonary toilet. Will recheck CXR to conform this is still bronchitis and not pneumonia. (2) COPD exacerbation Assessment/Plan: Continue nebs, Prednisone, Mucinex and antibiotics for bronchitis. She is still requiring O2 supplemental and will be tested for need for home O2 on day of DCh (possibly tomorrow). (3) Urinary retention with incomplete bladder emptying Assessment/Plan: Will DC Mendoza and start Flomax (4) Hypothyroidism Assessment/Plan: Her home Synthroid dose was found to be excessive with very low TSH yesterday. Today will be the first day of lower Synthroid dose. (5) Parkinsons disease Assessment/Plan: Conitnue her meds (6) Alcohol-induced persisting dementia Assessment/Plan: The record from [facility] described this. Her nurse here confirms that she is forgetful. Will stop telemetry and iv saline lock, to decrease any complaints (she wanted no iv flushes or iv infusions 2 days ago). (7) Tobacco abuse Assessment/Plan: Continue Nicotine patch. She is still requiring O2 supplemental and will be tested for need for home O2 on day of DCh (possibly tomorrow). (8) Vision decreased Assessment/Plan: As per [facility] records; from cataracts and macular degeneration - Current Meds Current Meds: Current Medications Generic Name Dose Route Start Last Admin Trade Name Freq PRN Reason Stop Dose Admin Acetaminophen/Butalbital/Caffeine 1 tab 02/03/19 20:18 02/04/19 20:44 Fioricet PO 1 tab Q4HR PRN Administration HEADACHE Albuterol/Ipratropium 3 ml 02/03/19 15:00 02/06/19 08:10 Duoneb INH 3 ml RTQID JUAN MANUEL Administration Azithromycin 250 mg 02/05/19 09:00 02/06/19 08:45 Zithromax PO 02/07/19 00:01 250 mg DAILY JUAN MANUEL Administration Budesonide 0.5 mg 02/03/19 19:00 02/06/19 08:10 Pulmicort INH 0.5 mg RTBID JUAN MANUEL Administration Bupropion HCl 150 mg 02/03/19 21:00 02/06/19 08:45 Wellbutrin Xl PO 150 mg BID JUAN MANUEL Administration Carbidopa/Levodopa 1 tab 02/03/19 22:00 02/06/19 06:15 Sinemet 25 Mg/100 Mg PO 1 tab TID JUAN MANUEL Administration Cholecalciferol 1,000 unit 02/04/19 09:00 02/06/19 08:44 Vitamin D3 PO 1,000 unit DAILY JUAN MANUEL Administration Docusate Sodium 100 mg 02/03/19 21:00 02/06/19 08:45 Colace 100mg Capsule PO 100 mg BID JUAN MANUEL Administration Famotidine 20 mg 02/03/19 21:00 02/06/19 08:45 Pepcid PO 20 mg BID JUAN MANUEL Administration Furosemide 20 mg 02/03/19 18:00 02/05/19 17:59 Lasix PO 20 mg MOWEFR JUAN MANUEL Administration Gabapentin 200 mg 02/03/19 21:00 02/06/19 08:44 Neurontin PO 200 mg BID JUAN MANUEL Administration Guaifenesin 600 mg 02/03/19 21:00 02/06/19 08:44 Mucinex PO 600 mg BID JUAN MANUEL Administration Levothyroxine Sodium 12.5 mcg 02/06/19 07:00 02/06/19 06:15 Synthroid PO 12.5 mcg QDAC JUAN MANUEL Administration Multivitamins 1 tab 02/05/19 12:00 02/06/19 08:44 Theragran PO 1 tab DAILYWM JUAN MANUEL Administration Nicotine 1 patch 02/03/19 19:06 02/06/19 08:44 Nicoderm TOP 1 patch DAILY JUAN MANUEL Administration Nortriptyline HCl 30 mg 02/03/19 21:00 02/05/19 20:46 Pamelor PO 30 mg QPM JUAN MANUEL Administration Polyethylene Glycol 17 gm 02/04/19 09:00 02/06/19 08:44 Miralax PO 17 gm DAILY JUAN MANUEL Administration Potassium Chloride 20 meq 02/04/19 09:00 02/06/19 08:44 K-Dur PO 20 meq DAILY JUAN MANUEL Administration Prednisone 20 mg 02/04/19 12:00 02/06/19 08:45 Deltasone PO 20 mg DAILYWM JUAN MANUEL Administration Prochlorperazine Edisylate 10 mg 02/03/19 12:48 02/05/19 18:00 Compazine Inj IVP 10 mg Q6HR PRN Administration Nausea / Vomiting Senna 8.6 mg 02/04/19 09:00 02/06/19 08:44 Senokot PO 8.6 mg DAILY JUAN MANUEL Administration Throat Lozenges 1 lozenge 02/04/19 11:26 02/04/19 16:54 Cepacol MM 1 lozenge Q2HR PRN Administration Throat pain - Lab Result Fish Bone Diagrams: 02/05/19 05:55 02/05/19 05:48 - Additional Planning My Orders: My Active Orders 02/05/19 12:00 Multivitamin [Theragran] 1 tab PO DAILYWM 02/06/19 07:00 Levothyroxine [Synthroid] 12.5 mcg PO QDAC Objective Vital Signs: Vital Signs - 24 hr 02/05/19 02/05/19 02/05/19 12:24 12:36 15:47 Temperature 37.0 C 37.4 C Heart Rate 118 H Heart Rate [ 121 H 106 H Brachial] Respiratory 22 36 H 26 H Rate Blood Pressure 138/68 H 119/67 [Right Brachial artery] O2 Saturation 82 L 93 02/05/19 02/05/19 02/06/19 19:53 20:34 01:00 Temperature 37.5 C 37.1 C Heart Rate 100 Heart Rate [ 98 93 Brachial] Respiratory 20 25 H 17 Rate Blood Pressure 118/58 L 106/62 [Right Brachial artery] O2 Saturation 91 L 94 02/06/19 02/06/19 02/06/19 05:00 07:50 08:10 Temperature 37.5 C 37.3 C Heart Rate 106 H Heart Rate [ 102 H 114 H Brachial] Respiratory 20 20 26 H Rate Blood Pressure 125/59 L 120/56 L [Right Brachial artery] O2 Saturation 92 96 Oxygen O2 Source Nasal cannula Oxygen Flow Rate 2 I&O (Last 24 Hrs): Intake and Output Totals x24h 02/04/19 02/05/19 02/06/19 23:59 23:59 23:59 Intake Total 1136 580 60 Output Total 2220 5530 9004 Balance -7368 -5960 -3256 General: Alert HEENT: Mucous membr. moist/pink Neck: Supple Neuro: Disoriented Cardiovascular: Regular rate Respiratory: Other (Scattered rhonchi and wet cough, less wheezing) Extremities: No edema - Results Results: Laboratory Results WBC 10.7 x10^3/uL (4.8-10.8) 02/05/19 05:55 RBC 3.69 10^6/uL (4.20-5.40) L 02/05/19 05:55 Hgb 11.6 g/dL (12.0-16.0) L 02/05/19 05:55 Hct 36.1 % (37.0-47.0) L 02/05/19 05:55 MCV 97.8 fL (81.0-99.0) 02/05/19 05:55 MCH 31.4 pg (27.0-31.0) H 02/05/19 05:55 MCHC 32.1 g/dL (32.0-36.0) 02/05/19 05:55 RDW 12.3 % (12.0-15.0) 02/05/19 05:55 Plt Count 261 10^3/uL (130-450) 02/05/19 05:55 MPV 9.0 fL (7.9-10.8) 02/05/19 05:55 Neut # (Auto) 7.1 10^3/uL (1.5-6.6) H 02/05/19 05:55 Lymph # (Auto) 1.8 10^3/uL (1.5-3.5) 02/05/19 05:55 [place] # (Auto) 1.6 10^3/uL (0.0-1.0) H 02/05/19 05:55 Eos # (Auto) 0.0 10^3/uL (0.0-0.7) 02/05/19 05:55 Baso # (Auto) 0.0 10^3/uL (0.0-0.1) 02/05/19 05:55 Absolute Nucleated RBC 0.00 x10^3/uL 02/05/19 05:55 Nucleated RBC % 0.0 /100WBC 02/05/19 05:55 PT 11.4 secs (9.9-12.6) 02/03/19 08:22 INR 1.0 (0.8-1.2) 02/03/19 08:22 Sodium 139 mmol/L (135-145) 02/05/19 05:48 Potassium 4.6 mmol/L (3.5-5.0) 02/05/19 05:48 Chloride 96 mmol/L (101-111) L 02/05/19 05:48 Carbon Dioxide 34 mmol/L (21-32) H 02/05/19 05:48 Anion Gap 9.0 (6-13) 02/05/19 05:48 BUN 16 mg/dL (6-20) 02/05/19 05:48 Creatinine 0.6 mg/dL (0.4-1.0) 02/05/19 05:48 Estimated GFR (MDRD) 100 (>89) 02/05/19 05:48 Glucose 95 mg/dL (70-100) 02/05/19 05:48 Lactic Acid 0.6 mmol/L (0.5-2.2) 02/03/19 08:22 Calcium 9.0 mg/dL (8.5-10.3) 02/05/19 05:48 Total Bilirubin 0.3 mg/dL (0.2-1.0) 02/03/19 07:43 AST 20 IU/L (10-42) 02/03/19 07:43 ALT < 10 IU/L (10-60) L 02/03/19 07:43 Alkaline Phosphatase 104 IU/L (42-121) 02/03/19 07:43 Total Protein 8.3 g/dL (6.7-8.2) H 02/03/19 07:43 Albumin 4.2 g/dL (3.2-5.5) 02/03/19 07:43 Globulin 4.1 g/dL (2.1-4.2) 02/03/19 07:43 Albumin/Globulin Ratio 1.0 (1.0-2.2) 02/03/19 07:43 TSH 0.11 uIU/mL (0.34-5.60) L 02/04/19 05:05 Urine Color YELLOW 02/03/19 16:25 Urine Clarity CLEAR (CLEAR) 02/03/19 16:25 Urine pH 6.0 PH (5.0-7.5) 02/03/19 16:25 Ur Specific [place] 1.010 (1.002-1.030) 02/03/19 16:25 Urine Protein NEGATIVE mg/dL (NEGATIVE) 02/03/19 16:25 Urine Glucose (UA) NEGATIVE mg/dL (NEGATIVE) 02/03/19 16:25 Urine Ketones NEGATIVE mg/dL (NEGATIVE) 02/03/19 16:25 Urine Occult Blood NEGATIVE (NEGATIVE) 02/03/19 16:25 Urine Nitrite NEGATIVE (NEGATIVE) 02/03/19 16:25 Urine Bilirubin NEGATIVE (NEGATIVE) 02/03/19 16:25 Urine Urobilinogen 0.2 (NORMAL) E.U./dL (NORMAL) 02/03/19 16:25 Ur Leukocyte Esterase NEGATIVE (NEGATIVE) 02/03/19 16:25 Urine RBC 0-5 /HPF (0-5) 02/03/19 16:25 Urine WBC 4-5 /HPF (0-5) 02/03/19 16:25 Urine WBC Clumps PRESENT 02/03/19 16:25 Ur Squamous Epith Cells FEW Squamous (<= Few) 02/03/19 16:25 Urine Bacteria Rare /HPF (None Seen) 02/03/19 16:25 Urine Culture Comments NOT INDICATED 02/03/19 16:25
--- NOTE | 2019-02-06 12:04 | XRAY Report ---
Reason: Cough and SOB, desats, recheck for infiltrate Procedure Date: 02/06/2019 Accession Number: [id number] / [id number] Procedure: XR - Chest 1 View X-Ray CPT Code: 82429 FULL RESULT: EXAM: CHEST RADIOGRAPHY EXAM DATE: 02/06/2019 11:28 AM. CLINICAL HISTORY: Cough and SOB, desats, recheck for infiltrate. COMPARISON: CHEST 1 VIEW 02/04/2019 6:07 AM. TECHNIQUE: Upright AP view. FINDINGS: Lungs/Pleura: As before, there is minimal coarsening of by basilar lung markings. No new airspace opacities. No peripheral interstitial abnormality. No leodan peribronchial cuffing. No pleural fluid or pneumothorax. Mediastinum: Within exam limitations, the cardiomediastinal contour is normal. Minimal aortic calcification. Other: None. IMPRESSION: Unchanged minimal coarsening of bibasilar lung markings most suggestive of atelectasis. RADIA
[2019-02-06] MEDS: TAMSULOSIN 0.4 MG CAPSULE PO SCH (14:24)
[2019-02-06] MEDS: NORTRIPTYLINE 10 MG CAPSULE PO SCH (21:25)
[2019-02-07] MEDS: BUTALB/ACETAM/CAFF 50/325/40MG TABLET PO PRN ×3 (04:08→21:49)
[2019-02-07] MEDS: CARBIDOPA/LEVODOPA 25 MG/100 MG TABLET PO SCH ×3 (06:00→21:49)
[2019-02-07] MEDS: LEVOTHYROXINE 25 MCG TABLET PO SCH (06:01)
[2019-02-07] MEDS: IPRATROPIUM/ALBUTEROL 3 ML NEB INH SCH ×4 (07:39→19:13)
[2019-02-07] MEDS: BUDESONIDE 0.5 MG/2 ML NEB INH SCH ×2 (07:40→19:13)
[2019-02-07] MEDS: predniSONE 20 MG TABLET PO SCH (09:16)
[2019-02-07] MEDS: DOCUSATE SODIUM 100 MG CAPSULE PO SCH ×2 (09:16→21:12)
[2019-02-07] MEDS: CHOLECALCIFEROL 1,000 UNIT TABLET PO SCH (09:16)
[2019-02-07] MEDS: SENNA 8.6 MG TABLET PO SCH (09:16)
[2019-02-07] MEDS: TAMSULOSIN 0.4 MG CAPSULE PO SCH (09:16)
[2019-02-07] MEDS: guaiFENesin 600 MG TABLET PO SCH ×2 (09:17→21:12)
[2019-02-07] MEDS: MULTIVITAMIN TABLET PO SCH (09:17)
[2019-02-07] MEDS: POTASSIUM CHLORIDE 20 MEQ TABLET PO SCH (09:17)
[2019-02-07] MEDS: GABAPENTIN 100 MG CAPSULE PO SCH ×2 (09:17→21:12)
[2019-02-07] MEDS: FAMOTIDINE 20 MG TABLET PO SCH ×2 (09:17→21:12)
[2019-02-07] MEDS: POLYETHYLENE GLYCOL 3350 17 GM PACKET PO SCH (09:19)
[2019-02-07] MEDS: buPROPion XL 150 MG TABLET PO SCH ×2 (09:19→21:12)
[2019-02-07] MEDS: NICOTINE 14 MG PATCH TOP SCH (09:19)
--- NOTE | 2019-02-07 11:03 | PROVIDER PROGRESS NOTE ---
Assessment/Plan - Problem List (1) Pseudomonas aeruginosa infection Assessment/Plan: Her antibiotic was changed from empiric Zpak to Cipro when the sputum grew Pseudomonas, IDd yesterday. She will need a 14 day course of Cipro. Will change to po Cipro tomorrow. Add Florastor. (2) COPD exacerbation Assessment/Plan: She still has a wet cough and copious phlegm. Continue nebs and Prednisone. Add Acapella device. (3) Urinary retention with incomplete bladder emptying Assessment/Plan: Mendoza out yesterday and 2 days of Flomax planned to promote bladder emptying, will stop Flomax after today. (4) Hypothyroidism Assessment/Plan: She is on a lower dose of thyroid pill, after TSH returned excessively low. (5) Parkinsons disease Assessment/Plan: Stable (6) Alcohol-induced persisting dementia Assessment/Plan: Stable (7) Tobacco abuse Assessment/Plan: On a Nicotine patch since admission. The O2 supplement may need to be continued at [facility]. Will plan oximetry test with RT tomorrow. (8) Vision decreased Assessment/Plan: Stable (9) Weakness Assessment/Plan: She is very weak, probably due to deconditioning; an aide needed to feed her. Today was first time she fed herself. Will promote OOB to chair and continue PT. - Current Meds Current Meds: Current Medications Generic Name Dose Route Start Last Admin Trade Name Freq PRN Reason Stop Dose Admin Acetaminophen/Butalbital/Caffeine 1 tab 02/03/19 20:18 02/07/19 04:08 Fioricet PO 1 tab Q4HR PRN Administration HEADACHE Albuterol/Ipratropium 3 ml 02/03/19 15:00 02/07/19 07:39 Duoneb INH 3 ml RTQID JUAN MANUEL Administration Budesonide 0.5 mg 02/03/19 19:00 02/07/19 07:40 Pulmicort INH 0.5 mg RTBID JUAN MANUEL Administration Bupropion HCl 150 mg 02/03/19 21:00 02/07/19 09:19 Wellbutrin Xl PO 150 mg BID JUAN MANUEL Administration Carbidopa/Levodopa 1 tab 02/03/19 22:00 02/07/19 06:00 Sinemet 25 Mg/100 Mg PO 1 tab TID JUAN MANUEL Administration Cholecalciferol 1,000 unit 02/04/19 09:00 02/07/19 09:16 Vitamin D3 PO 1,000 unit DAILY JUAN MANUEL Administration Docusate Sodium 100 mg 02/03/19 21:00 02/07/19 09:16 Colace 100mg Capsule PO 100 mg BID JUAN MANUEL Administration Famotidine 20 mg 02/03/19 21:00 02/07/19 09:17 Pepcid PO 20 mg BID JUAN MANUEL Administration Furosemide 20 mg 02/03/19 18:00 02/05/19 17:59 Lasix PO 20 mg MOWEFR JUAN MANUEL Administration Gabapentin 200 mg 02/03/19 21:00 02/07/19 09:17 Neurontin PO 200 mg BID JUAN MANUEL Administration Guaifenesin 600 mg 02/03/19 21:00 02/07/19 09:17 Mucinex PO 600 mg BID JUAN MANUEL Administration Levothyroxine Sodium 12.5 mcg 02/06/19 07:00 02/07/19 06:01 Synthroid PO 12.5 mcg QDAC JUAN MANUEL Administration Multivitamins 1 tab 02/05/19 12:00 02/07/19 09:17 Theragran PO 1 tab DAILYWM JUAN MANUEL Administration Nicotine 1 patch 02/03/19 19:06 02/07/19 09:19 Nicoderm TOP 1 patch DAILY JUAN MANUEL Administration Nortriptyline HCl 30 mg 02/03/19 21:00 02/06/19 21:25 Pamelor PO 30 mg QPM JUAN MANUEL Administration Polyethylene Glycol 17 gm 02/04/19 09:00 02/07/19 09:19 Miralax PO 17 gm DAILY JUAN MANUEL Administration Potassium Chloride 20 meq 02/04/19 09:00 02/07/19 09:17 K-Dur PO 20 meq DAILY JUAN MANUEL Administration Prednisone 20 mg 02/04/19 12:00 02/07/19 09:16 Deltasone PO 20 mg DAILYWM JUAN MANUEL Administration Prochlorperazine Edisylate 10 mg 02/03/19 12:48 02/05/19 18:00 Compazine Inj IVP 10 mg Q6HR PRN Administration Nausea / Vomiting Senna 8.6 mg 02/04/19 09:00 02/07/19 09:16 Senokot PO 8.6 mg DAILY JUAN MANUEL Administration Tamsulosin HCl 0.4 mg 02/06/19 12:00 02/07/19 09:16 Flomax PO 0.4 mg DAILY JUAN MANUEL Administration Throat Lozenges 1 lozenge 02/04/19 11:26 02/04/19 16:54 Cepacol MM 1 lozenge Q2HR PRN Administration Throat pain - Lab Result Fish Bone Diagrams: 02/05/19 05:55 02/05/19 05:48 - Additional Planning My Orders: My Active Orders 02/06/19 12:00 Tamsulosin [Flomax] 0.4 mg PO DAILY 02/07/19 11:00 Acapella (Flutter Valve Device [RC] TID Subjective - Subjective Patient Reports: Feeling Better, Other (Slightly less cough) Nursing Reports: Other (She is able to feed herself for the first time) Objective Vital Signs: Vital Signs - 24 hr 02/06/19 02/06/19 02/06/19 11:28 13:05 16:19 Temperature 37.1 C 37.0 C Heart Rate 100 Heart Rate [ 102 H 102 H Brachial] Respiratory 26 H 24 26 H Rate Blood Pressure 98/53 L [Left Brachial artery] Blood Pressure 117/62 [Right Brachial artery] O2 Saturation 92 94 02/06/19 02/06/19 02/06/19 19:10 20:33 21:00 Temperature 36.9 C Heart Rate 95 Heart Rate [ 98 Brachial] Respiratory 20 24 Rate Blood Pressure [Left Brachial artery] Blood Pressure 122/63 [Right Brachial artery] O2 Saturation 89 L 86 L 02/07/19 02/07/19 02/07/19 00:00 07:43 08:57 Temperature 36.3 C L 36.5 C Heart Rate 94 Heart Rate [ 86 102 H Brachial] Respiratory 22 20 20 Rate Blood Pressure [Left Brachial artery] Blood Pressure 111/81 H 102/51 L [Right Brachial artery] O2 Saturation 93 83 L Oxygen O2 Source Nasal cannula Oxygen Flow Rate 2 I&O (Last 24 Hrs): Intake and Output Totals x24h 02/05/19 02/06/19 02/07/19 23:59 23:59 23:59 Intake Total 580 360 340 Output Total 3126 8040 650 Balance -2545 -1190 -310 General: Alert HEENT: Mucous membr. moist/pink Neck: Supple Neuro: Disoriented Cardiovascular: Regular rate Respiratory: No respiratory distress, Other (No wheezing) Abdomen: Soft Extremities: No edema - Results Results: Laboratory Results WBC 10.7 x10^3/uL (4.8-10.8) 02/05/19 05:55 RBC 3.69 10^6/uL (4.20-5.40) L 02/05/19 05:55 Hgb 11.6 g/dL (12.0-16.0) L 02/05/19 05:55 Hct 36.1 % (37.0-47.0) L 02/05/19 05:55 MCV 97.8 fL (81.0-99.0) 02/05/19 05:55 MCH 31.4 pg (27.0-31.0) H 02/05/19 05:55 MCHC 32.1 g/dL (32.0-36.0) 02/05/19 05:55 RDW 12.3 % (12.0-15.0) 02/05/19 05:55 Plt Count 261 10^3/uL (130-450) 02/05/19 05:55 MPV 9.0 fL (7.9-10.8) 02/05/19 05:55 Neut # (Auto) 7.1 10^3/uL (1.5-6.6) H 02/05/19 05:55 Lymph # (Auto) 1.8 10^3/uL (1.5-3.5) 02/05/19 05:55 Garrard # (Auto) 1.6 10^3/uL (0.0-1.0) H 02/05/19 05:55 Eos # (Auto) 0.0 10^3/uL (0.0-0.7) 02/05/19 05:55 Baso # (Auto) 0.0 10^3/uL (0.0-0.1) 02/05/19 05:55 Absolute Nucleated RBC 0.00 x10^3/uL 02/05/19 05:55 Nucleated RBC % 0.0 /100WBC 02/05/19 05:55 PT 11.4 secs (9.9-12.6) 02/03/19 08:22 INR 1.0 (0.8-1.2) 02/03/19 08:22 Sodium 139 mmol/L (135-145) 02/05/19 05:48 Potassium 4.6 mmol/L (3.5-5.0) 02/05/19 05:48 Chloride 96 mmol/L (101-111) L 02/05/19 05:48 Carbon Dioxide 34 mmol/L (21-32) H 02/05/19 05:48 Anion Gap 9.0 (6-13) 02/05/19 05:48 BUN 16 mg/dL (6-20) 02/05/19 05:48 Creatinine 0.6 mg/dL (0.4-1.0) 02/05/19 05:48 Estimated GFR (MDRD) 100 (>89) 02/05/19 05:48 Glucose 95 mg/dL (70-100) 02/05/19 05:48 Lactic Acid 0.6 mmol/L (0.5-2.2) 02/03/19 08:22 Calcium 9.0 mg/dL (8.5-10.3) 02/05/19 05:48 Total Bilirubin 0.3 mg/dL (0.2-1.0) 02/03/19 07:43 AST 20 IU/L (10-42) 02/03/19 07:43 ALT < 10 IU/L (10-60) L 02/03/19 07:43 Alkaline Phosphatase 104 IU/L (42-121) 02/03/19 07:43 Total Protein 8.3 g/dL (6.7-8.2) H 02/03/19 07:43 Albumin 4.2 g/dL (3.2-5.5) 02/03/19 07:43 Globulin 4.1 g/dL (2.1-4.2) 02/03/19 07:43 Albumin/Globulin Ratio 1.0 (1.0-2.2) 02/03/19 07:43 TSH 0.11 uIU/mL (0.34-5.60) L 02/04/19 05:05 Urine Color YELLOW 02/03/19 16:25 Urine Clarity CLEAR (CLEAR) 02/03/19 16:25 Urine pH 6.0 PH (5.0-7.5) 02/03/19 16:25 Ur Specific [place] 1.010 (1.002-1.030) 02/03/19 16:25 Urine Protein NEGATIVE mg/dL (NEGATIVE) 02/03/19 16:25 Urine Glucose (UA) NEGATIVE mg/dL (NEGATIVE) 02/03/19 16:25 Urine Ketones NEGATIVE mg/dL (NEGATIVE) 02/03/19 16:25 Urine Occult Blood NEGATIVE (NEGATIVE) 02/03/19 16:25 Urine Nitrite NEGATIVE (NEGATIVE) 02/03/19 16:25 Urine Bilirubin NEGATIVE (NEGATIVE) 02/03/19 16:25 Urine Urobilinogen 0.2 (NORMAL) E.U./dL (NORMAL) 02/03/19 16:25 Ur Leukocyte Esterase NEGATIVE (NEGATIVE) 02/03/19 16:25 Urine RBC 0-5 /HPF (0-5) 02/03/19 16:25 Urine WBC 4-5 /HPF (0-5) 02/03/19 16:25 Urine WBC Clumps PRESENT 02/03/19 16:25 Ur Squamous Epith Cells FEW Squamous (<= Few) 02/03/19 16:25 Urine Bacteria Rare /HPF (None Seen) 02/03/19 16:25 Urine Culture Comments NOT INDICATED 02/03/19 16:25
[2019-02-07] MEDS: SACCHAROMYCES BOULARDII 250 MG CAPSULE PO SCH ×2 (13:23→17:53)
[2019-02-07] MEDS: NORTRIPTYLINE 10 MG CAPSULE PO SCH (21:13)
[2019-02-08] MEDS: LEVOTHYROXINE 25 MCG TABLET PO SCH (06:19)
[2019-02-08] MEDS: CARBIDOPA/LEVODOPA 25 MG/100 MG TABLET PO SCH ×2 (06:19→14:08)
[2019-02-08] MEDS: IPRATROPIUM/ALBUTEROL 3 ML NEB INH SCH ×3 (07:31→16:35)
[2019-02-08] MEDS: BUDESONIDE 0.5 MG/2 ML NEB INH SCH (07:32)
[2019-02-08] MEDS: CHOLECALCIFEROL 1,000 UNIT TABLET PO SCH (08:09)
[2019-02-08] MEDS: POTASSIUM CHLORIDE 20 MEQ TABLET PO SCH (08:09)
[2019-02-08] MEDS: guaiFENesin 600 MG TABLET PO SCH (08:09)
[2019-02-08] MEDS: FAMOTIDINE 20 MG TABLET PO SCH (08:10)
[2019-02-08] MEDS: SACCHAROMYCES BOULARDII 250 MG CAPSULE PO SCH (08:10)
[2019-02-08] MEDS: BUTALB/ACETAM/CAFF 50/325/40MG TABLET PO PRN ×2 (08:10→12:28)
[2019-02-08] MEDS: MULTIVITAMIN TABLET PO SCH (08:11)
[2019-02-08] MEDS: TAMSULOSIN 0.4 MG CAPSULE PO SCH (08:11)
[2019-02-08] MEDS: SENNA 8.6 MG TABLET PO SCH (08:11)
[2019-02-08] MEDS: predniSONE 20 MG TABLET PO SCH (08:11)
[2019-02-08] MEDS: GABAPENTIN 100 MG CAPSULE PO SCH (08:11)
[2019-02-08] MEDS: NICOTINE 14 MG PATCH TOP SCH (08:13)
[2019-02-08] MEDS: POLYETHYLENE GLYCOL 3350 17 GM PACKET PO SCH (08:13)
[2019-02-08] MEDS: DOCUSATE SODIUM 100 MG CAPSULE PO SCH (08:13)
[2019-02-08] MEDS: buPROPion XL 150 MG TABLET PO SCH (08:14)
[2019-02-08 09:37] LABS: ABG BASE EXCESS 7.5 mmol/L (-2.0-3.0); ABG HCO3 34.5 mmol/L (22.0-26.0); ABG OXYGEN SATURATION 93 % (94-98); ABG PH 7.37 (7.35-7.45); ABG PO2 67 mmHg (80-100); ABG TCO2 36.4 MMOL/L (21.0-29.0)
[2019-02-08 09:38] LABS: ALLEN TEST POSITIVE
[2019-02-08 09:41] LABS: ABG PCO2 61 mmHg (34-45)
[2019-02-08] MEDS ORDERED: CIPROFLOXACIN 250 MG TABLET PO SCH ×2 (10:00→11:00)
--- NOTE | 2019-02-08 10:56 | Discharge Plan ---
"Discharge Plan for SNF / KEVIN - Discharge Plan And Transition Orders Problem Reviewed?: Yes Disposition: 03 SNF DC/Xfer Condition: Stable Allergies and Adverse Reactions: Allergies Allergy/AdvReac Type Severity Reaction Status Date / Time Penicillins Allergy Unknown Verified 02/03/19 07:20 Health Concerns: Admitted with a COPD exacerbation, hypoxia and bronchitis. The sputum culture grew Pseudomonas. Records were reviewed and dementia was noted. Plan of Treatment: Finish a course of Cipro, take with Florastor (probiotic), and new oxygen ordered to use @ 2L at rest and 4L with exertion. New medications: Prednisone on a tapering schedule, vitamins, Singular, Mucinex and a Nicotine patch for 2 weeks were ordered. Other pre-hospital medications may be resumed. Care Goals: Stabilization of respiratory status is goal. Smoking cessation was advised but she refused. Assessment: Plan was reviewed with patient but she has poor incite due to dementia. - SNF / LONGTERM Transition Orders Admit to (Facility): [facility] Discharge Diagnosis: 1) Pseudomonas bronchitis 2) COPD exacerbation, now oxygen dependant 3) Alcohol-induced dementia 4) Parkinson's disease 5) Acute urinary retention, resolved 6) Hypothyroidism with excessive dose, was adjusted down 7) Tobacco abuse 8) Vision loss due to cataracts and macular degeneration Medicare Certification Statement: I certify that [facility] is medically necessary on a continuing basis for any of the conditions for which she/he is receiving care during hospitalization. Notify PCP of admission and forward orders to primary provider for signature. Weight on admission and: Monthly Call PCP immediately if weight increases by: 5 kg Other Notification Orders: Call PCP immediately if patient develops dyspnea, chest pain/tightness or edema. House Bowel Program: Yes Additional Bowel Program Orders: If no BM after 2 days, nurse may give M.O.M. 30ml PO PRN and/or ducolax Supp 1 NH and/or YAMIL 250mg P.O., and/or senna 1-2 tabs PO. On day 3 nurse may give repeat above order until residents constipation is resolved. Annual Influenza Vaccine (between Jan 10 and August 09): Yes Two-step PPD per [facility] [id number] or approved exception documents: Yes Oxygen Orders: 2L of oxygen per nasal cannula @ rest. 4L of oxygen per nasal cannula with exertion Medication Orders: PLEASE REFER TO THE DISCHARGE MEDICATION LIST. Insulin Orders?: No - Medications New Prescriptions: Ciprofloxacin/Ciprofloxa HCl [Ciprofloxacin ER 500 mg Tablet] 500 mg PO BID #26 tbmp.24hr guaiFENesin [Mucinex] 600 mg PO BID #14 tablet Montelukast [Singulair] 10 mg PO QPM #30 tablet Multivitamin [Theragran] 1 tab PO DAILYWM #30 tablet Nicotine 14 mg Patch [Nicoderm] 1 patch TOP DAILY #14 patch predniSONE [Deltasone] 10 mg PO DAILYWM #10 tablet Saccharomyces Boulardii [Daily Probiotic] 250 mg PO BID #28 capsule - Diet Type: Geriatric Texture: Regular Liquids: Thin May have monthly special meal: Yes - Therapies | Activity Rehabilitation Potential: Maintain present ADL Functional Activity: Activity as Tolerated Weight Bearing: Full Weight Assistance Devices: Walker Follow Up: See Dr Vela in 5-7 days in hospital follow-up."
[2019-02-08 12:49] VITALS: BP 128/53
[2019-02-08] MEDS ORDERED: MONTELUKAST 10 MG TABLET PO SCH (21:00)
--- NOTE | 2019-02-10 18:00 | DISCHARGE SUMMARY ---
Physician: Joan Valente MD DATE OF ADMISSION: 02/03/2019 DATE OF DISCHARGE: 02/08/2019 HISTORY OF PRESENT ILLNESS: This is a 68-year-old white female with a history of assisted living habitation, COPD and still smokes, Parkinson's, depression, and hypothyroidism. (We learned of her dementia later). She developed a cough and low-grade fever over 3 days and was visibly more short of breath and was advised to come to the ER by ambulance. She was found to be hypoxic with oxygen saturations on room air of 78%, tachycardic with heart rates of 100 to 105 and had a low-grade fever. She got 1 dose of IV steroids and had 3 nebulizer treatments in the ER and remained very short of breath and desaturating and was admitted for management of a COPD exacerbation and bronchitis. HOSPITAL COURSE AND DISCHARGE DIAGNOSES 1. Pseudomonas bronchopneumonia. Patient had frequent wet cough productive of yellow and green sputum, which was sent for culture and grew Pseudomonas aeruginosa. She had been started on empiric Zithromax, which was changed to oral Ciprofloxacin when the Pseudomonas sensitivities returned, and she was discharged home to finish a 2-week course of treatment. 2. Chronic obstructive pulmonary disease exacerbation. Patient was tachypneic and wheezing for many days without improvement despite IV steroids, nebulizers around the clock and p.r.n., new Singulair started and supplemental oxygen. She had complaints of IV injections; therefore, was put on oral prednisone on her second day and continued with other aggressive management including Acapella flutter valve for pulmonary toilet and Mucinex. 3. Chronic obstructive pulmonary disease, oxygen dependent. She required oxygen throughout her hospital stay. When her cough finally decreased, she was tested by Respiratory Therapist for needing new oxygen. The patient was hypoxic at rest, on room air with oxygen saturations of 66%. On oxygen at 2 liters per minute, her oxygen saturation was improved to 90%. On 2 liters per minute with exertion, her oxygen saturations were 75%. On 3 liters per minute, with exertion, her saturations were 85% and finally on 4 liters per minute with exertion, her oxygen saturations improved to 90%. I am ordering home O2, 2 liters per minute, by nasal cannula at rest, and 4 liters per minute via nasal cannula with exertion, to treat her COPD. 4. Alcohol-induced dementia. At mid-hospital stay, we received her records from an assessment done at the Assisted Living facility, which lists all of her diagnoses, which she did not describe on her own at admission: she has alcohol- induced dementia. 5. Parkinson's disease. Patient thought she did not have this diagnosis; however, she presented on carbidopa/levodopa, which was continued throughout her hospital stay. 6. Acute urinary retention. At early hospital stay, she had acute urinary retention and required Mendoza catheter for drainage of her bladder for 2 days. It was discontinued and she received 2 days of Flomax to aid in drainage. 7. Hypothyroidism. A TSH level was obtained and result was 0.11, indicating that her thyroid replacement dose was excessive. Her Synthroid dose was decreased from 25 mcg to 12.5 mcg during this hospital stay and at discharge. 8. Tobacco abuse. Patient was on a nicotine patch 14 mg topically daily. She was advised smoking cessation by her providers and RT and her nurses. She vehemently refused, and said that she would not quit cigarette smoking after discharge. 10. Vision loss due to cataracts and macular degeneration. This is a chronic problem. LABORATORY AND IMAGING: Reviewed and summarized above. Her chest x-rays were repeated several times and never showed an infiltrate. MEDICATIONS AT THE TIME OF DISCHARGE 1. Albuterol inhaler. 2. Atrovent inhaler. 3. Singulair 10 mg q.p.m. 4. Prednisone 20 mg for 2 more days, then decrease to 10 mg x4 days, then 5 mg for 4 days, then stop. 5. Cipro 500 mg b.i.d. for 13 more days. 6. Florastor 250 mg b.i.d. while on Cipro. 7. Aspirin with Tylenol and caffeine p.r.n. 8. Bupropion 150 mg b.i.d. 9. Carbidopa/levodopa t.i.d. 10. Vitamin D3 1000 units daily. 11. Colace 100 mg b.i.d. 12. Lasix 20 mg on Friday, Friday, Friday. 13. Gabapentin 200 mg b.i.d. 14. Synthroid decreased from 25 mcg daily to 12.5 mcg daily. 15. Lovastatin 20 mg daily. 16. Nortriptyline 30 mg every night. 17. Potassium 20 mEq daily. 18. Zantac 150 mg b.i.d. 19. Senna daily. 20. Incruse inhaler daily. 21. Mucinex 600 mg b.i.d. for 1 more week. 22. Multivitamin daily. CONDITION AT DISCHARGE: Stable. PHYSICAL EXAMINATION VITAL SIGNS: Blood pressure 128/53, heart rate 90 to 100 in sinus rhythm, afebrile, oxygen saturation as reported above. HEENT: Fatigued looking, leathery auguste skin. Moist oral mucosa. NECK: Without JVD. LUNGS: No wheezes, prolonged expiratory phase, scattered rhonchi. HEART: Normal heart sounds. ABDOMEN: Soft, nontender. EXTREMITIES: No edema. NEUROLOGIC: Poor memory, grossly intact motor and sensory exam. CODE STATUS: FULL CODE. FOLLOWUP: Patient was advised to see her PCP in 1 week for hospital followup. Time required to complete this entire discharge, KEVIN orders, chart review, dictation: 65 minutes. cc: Martine Vela MD TD: 02/10/2019 17:34 MTDD
== END 2019-02-08 19:09 | DRG 178 ==
LOC: ED 07:11 → UNDOADMIN 12:47 → MS2 12:47 → UNDODISIN 02-08 19:09
PROVIDERS: ADMIT Internal Medicine; ATTEND Internal Medicine
DX: J15.1 Pneumonia due to Pseudomonas (principal); G43.009 Migraine without aura, not intractable, without status migrainosus; I10 Essential (primary) hypertension; J44.0 Chronic obstructive pulmonary disease with (acute) lower respiratory infection; J44.1 Chronic obstructive pulmonary disease with (acute) exacerbation; Z87.11 Personal history of peptic ulcer disease; R09.02 Hypoxemia; F10.97 Alcohol use, unspecified with alcohol-induced persisting dementia; G20 Parkinson's disease; R33.9 Retention of urine, unspecified; E03.9 Hypothyroidism, unspecified; G43.909 Migraine, unspecified, not intractable, without status migrainosus; F17.210 Nicotine dependence, cigarettes, uncomplicated; F32.9 Major depressive disorder, single episode, unspecified; H26.9 Unspecified cataract; H35.30 Unspecified macular degeneration; Z99.81 Dependence on supplemental oxygen; Z79.51 Long term (current) use of inhaled steroids
CPT/HCPCS: 36415; 36600; 71045; 80048; 80053; 81001; 82803; 83605; 84443; 85025; 85610; 87040; 87070; 87077; 87181; 87205; 93005; 93306; 94640; 94761; 96365; 96375; 97116; 97161; 97530; 99284; 99285; A9270; J1200; J7512; J7626; 87086

== ENCOUNTER 2019-03-01 15:40 | Outpatient (CLI) | payer MEDICARE, MEDICAID | END 2019-03-01 15:41 | disposition critical access hospital (66) | LOC: EMS 15:40 | PROVIDERS: ATTEND Surgery | DX: R11.2 Nausea with vomiting, unspecified (principal) | CPT/HCPCS: A0425; A0429 ==

== ENCOUNTER 2019-03-01 16:01 | Emergency (ER) | payer MEDICARE, MEDICAID ==
--- NOTE | 2019-03-01 16:11 | ED Physician Documentation ---
PD HPI NVD - Stated complaint Stated Complaint: N/V - Chief complaint Chief Complaint: Abd Pain - History obtained from History obtained from: Patient, EMS - History of Present Illness Timing - onset: Other (This is a yas but somewhat uncooperative and potentially demented 68-year-old who presents by ambulance from [facility] assisted living with vomiting for 24 hours. She says she does not have any abdominal pain and she is more short of breath and normal with an increased productive cough. She has a history of COPD and continues to smoke. She has not received any medications for vomiting as far as I can tell.) Review of Systems Unable to obtain: Dementia PD PAST MEDICAL HISTORY - Past Medical History Cardiovascular: Hypertension Respiratory: COPD Neuro: Migraines Endocrine/Autoimmune: HyPOthyroidism GI: GERD Psych: Depression, Other - Past Surgical History General: Gastric surgery - Present Medications Home Medications: Ambulatory Orders Medication Instructions Recorded Confirmed Albuterol 3 ml INH Q4H PRN 02/03/19 02/03/19 Albuterol Sulfate [Albuterol 2 puffs INH QID PRN 02/03/19 02/03/19 Sulfate Hfa] Aspirin/Acetaminophen/Caffeine 2 tab PO BID PRN 02/03/19 02/03/19 [Excedrin Extra Strength Caplet] Bupropion HCl [Bupropion Xl] 150 mg PO BID 02/03/19 02/03/19 Carbidopa/Levodopa 1 tab PO TID 02/03/19 02/03/19 [Carbidopa-Levodopa 25-100 Tab] Cholecalciferol (Vitamin D3) 1,000 unit PO DAILY 02/03/19 02/03/19 [Vitamin D3] Docusate Sodium 100 mg PO BID 02/03/19 02/03/19 Furosemide 20 mg PO MOWEFR 02/03/19 02/03/19 Gabapentin 200 mg PO BID 02/03/19 02/03/19 Ipratropium [Atrovent] 0.2 mg INH QID 02/03/19 02/03/19 Levothyroxine [Synthroid] 25 mcg PO DAILY 02/03/19 02/03/19 Lovastatin 20 mg PO DAILY 02/03/19 02/03/19 Nortriptyline HCl 30 mg PO QPM 02/03/19 02/03/19 Potassium Chloride 20 meq PO DAILY 02/03/19 02/03/19 Ranitidine HCl [Acid Control] 150 mg PO BID 02/03/19 02/03/19 Senna [Senokot] 8.6 mg PO DAILY 02/03/19 02/03/19 Umeclidinium [place] [Incruse 1 puffs INH DAILY 02/03/19 02/03/19 Ellipta] Ciprofloxacin/Ciprofloxa HCl 500 mg PO BID #26 tbmp.24hr 02/08/19 [Ciprofloxacin ER 500 mg Tablet] Montelukast [Singulair] 10 mg PO QPM #30 tablet 02/08/19 Multivitamin [Theragran] 1 tab PO DAILYWM #30 tablet 02/08/19 Nicotine 14 mg Patch [Nicoderm] 1 patch TOP DAILY #14 patch 02/08/19 Saccharomyces Boulardii [Daily 250 mg PO BID #28 capsule 02/08/19 Probiotic] guaiFENesin [Mucinex] 600 mg PO BID #14 tablet 02/08/19 predniSONE [Deltasone] 10 mg PO DAILYWM #10 tablet 02/08/19 Ondansetron Odt [Zofran] 4 mg TL Q6H PRN #10 tablet 03/01/19 - Allergies Allergies/Adverse Reactions: Allergies Allergy/AdvReac Type Severity Reaction Status Date / Time Penicillins Allergy Unknown Verified 02/03/19 07:20 - Social History Does the pt smoke?: Yes Smoking Status: Current every day smoker Does the pt drink ETOH?: No Does the pt have substance abuse?: No - POLST Patient has POLST: No PD ED PE NORMAL - Vitals Vital signs reviewed: Yes - General General: Other (She is alert and oriented to person and place but not time, she vacillates somewhat on recent events.) - HEENT HEENT: PERRL, EOMI - Neck Neck: Supple, no meningeal sign, No bony TTP - Cardiac Cardiac: RRR, No murmur - Respiratory Respiratory: Other (Quite rhonchorous) - Abdomen Abdomen: Other (Mild upper abdominal tenderness with diminished but not absent bowel tones, no surgical signs.) - Derm Derm: Normal color, Warm and dry - Extremities Extremities: No edema, No calf tenderness / cord - Neuro Neuro: manager domestic 2-12 intact Eye Opening: Spontaneous Motor: Obeys Commands Verbal: Confused GCS Score: 14 Results - Vitals Vitals: Vital Signs - 24 hr 03/01/19 03/01/19 16:03 18:57 Temperature 36.7 C Heart Rate 103 H 95 Respiratory 20 20 Rate Blood Pressure 135/85 H 130/75 O2 Saturation 98 98 Oxygen O2 Source Nasal cannula - EKG (time done) 1642 Rate: Rate (enter#) (101) Rhythm: Sinus tachycardia, LAE [place]: Normal Intervals: Normal OR Ischemia: Other (She has a right bundle branch block with deeply inverted T waves in the anterior precordium. Possibly sub-millimeter ST elevation in 2 3 and F. Compared with EKG obtained on Feb 04 of this year there is really not a whole lot of change.) Computer interpretation: Agree with computer - Labs Labs: Laboratory Tests 03/01/19 03/01/19 03/01/19 16:20 16:20 16:20 WBC 12.3 H RBC 4.62 Hgb 14.5 Hct 45.6 MCV 98.7 MCH 31.4 H MCHC 31.8 L RDW 13.9 Plt Count 391 MPV 9.0 Neut # (Auto) 9.5 H Lymph # (Auto) 1.5 [place] # (Auto) 1.0 Eos # (Auto) 0.1 Baso # (Auto) 0.1 Absolute Nucleated RBC 0.00 Nucleated RBC % 0.0 Sodium 141 Potassium 4.0 Chloride 99 L Carbon Dioxide 26 Anion Gap 16.0 H BUN 17 Creatinine 0.8 Estimated GFR (MDRD) 72 L Glucose 132 H Lactic Acid Calcium 9.5 Total Bilirubin 0.7 AST 15 ALT 13 Alkaline Phosphatase 86 Troponin I High Sens 6.7 Total Protein 8.1 Albumin 4.1 Globulin 4.0 Albumin/Globulin Ratio 1.0 Lipase 18 L Urine Color Urine Clarity Urine pH Ur Specific [place] Urine Protein Urine Glucose (UA) Urine Ketones Urine Occult Blood Urine Nitrite Urine Bilirubin Urine Urobilinogen Ur Leukocyte Esterase Ur Microscopic Review Urine Culture Comments 03/01/19 03/01/19 16:20 18:16 WBC RBC Hgb Hct MCV MCH MCHC RDW Plt Count MPV Neut # (Auto) Lymph # (Auto) [place] # (Auto) Eos # (Auto) Baso # (Auto) Absolute Nucleated RBC Nucleated RBC % Sodium Potassium Chloride Carbon Dioxide Anion Gap BUN Creatinine Estimated GFR (MDRD) Glucose Lactic Acid 0.9 Calcium Total Bilirubin AST ALT Alkaline Phosphatase Troponin I High Sens Total Protein Albumin Globulin Albumin/Globulin Ratio Lipase Urine Color YELLOW Urine Clarity CLEAR Urine pH 5.5 Ur Specific [place] <=1.005 Urine Protein NEGATIVE Urine Glucose (UA) NEGATIVE Urine Ketones 15 H Urine Occult Blood NEGATIVE Urine Nitrite NEGATIVE Urine Bilirubin NEGATIVE Urine Urobilinogen 0.2 (NORMAL) Ur Leukocyte Esterase NEGATIVE Ur Microscopic Review NOT INDICATED Urine Culture Comments NOT INDICATED - Rads (name of study) 2v chest Radiology: EMP read contemporaneously (COPD< NAD) CT A/P Radiology: EMP read contemporaneously (Hiatal hernia, distended gallbladder, left adrenal nodule), See rad report PD MEDICAL DECISION MAKING - ED course ED course: 68-year-old woman with moderate dementia presents from an assisted living facility with vomiting. On recheck after CT imaging she was nontender in the right upper quadrant so I doubt cholecystitis after review of the CT report. She does have a hiatal hernia with fluid in the esophagus. An adrenal nodule needing follow-up. Feeling better and requesting fluids after meds here and passed an oral challenge. Remained nontender on repeat evaluation just prior to discharge. Departure - Departure Disposition: 01 Home, Self Care Clinical Impression: Vomiting, COPD exacerbation, Tobacco abuse Condition: Good Record reviewed to determine appropriate education?: Yes Instructions: ED Nausea Vomiting Prescriptions: Ondansetron Odt [Zofran] 4 mg TL Q6H PRN #10 tablet PRN Reason: Nausea / Vomiting Comments: She does have some findings on the CAT scan that would necessitate follow-up. She has a hiatal hernia. A left adrenal nodule. She needs to follow-up with her primary care physician for more imaging on these. Return if not better in 24 hours. Anytime if worse.
[2019-03-01 16:30] LABS: BASOPHILS # (AUTO) 0.1 10^3/uL (0.0-0.1); BASOPHILS % (AUTO) 0.4 %; EOSINOPHILS # (AUTO) 0.1 10^3/uL (0.0-0.7); EOSINOPHILS % (AUTO) 0.9 %; HGB - HEMOGLOBIN 14.5 g/dL (12.0-16.0); LYMPHOCYTES # (AUTO) 1.5 10^3/uL (1.5-3.5); LYMPHOCYTES % (AUTO) 12.3 %; MEAN CORPUSCULAR HEMOGLOBIN 31.4 pg (27.0-31.0); MEAN CORPUSCULAR HGB CONC 31.8 g/dL (32.0-36.0); MEAN CORPUSCULAR VOLUME 98.7 fL (81.0-99.0); MONOCYTES % (AUTO) 8.2 %; NEUTROPHILS # (AUTO) 9.5 10^3/uL (1.5-6.6); NEUTROPHILS % (AUTO) 77.7 %; PLT - PLATELET COUNT 391 10^3/uL (130-450); RED BLOOD COUNT 4.62 10^6/uL (4.20-5.40); RED CELL DISTRIBUTION WIDTH 13.9 % (12.0-15.0); WHITE BLOOD COUNT 12.3 x10^3/uL (4.8-10.8)
[2019-03-01 16:45] LABS: ALBUMIN 4.1 g/dL (3.2-5.5); BILIRUBIN,TOTAL 0.7 mg/dL (0.2-1.0); CALCIUM 9.5 mg/dL (8.5-10.3); CREATININE 0.8 mg/dL (0.4-1.0); TOTAL PROTEIN 8.1 g/dL (6.7-8.2)
[2019-03-01] MEDS ORDERED: IOVERSOL 320 100 ML VIAL IVP ONE ×2 (17:19→17:46)
--- NOTE | 2019-03-01 18:38 | XRAY Report ---
Reason: dyspnea cough Procedure Date: 03/01/2019 Accession Number: [id number] / [id number] Procedure: XR - Chest 2 View X-Ray CPT Code: 67837 FULL RESULT: EXAM: CHEST RADIOGRAPHY EXAM DATE: 03/01/2019 05:56 PM. CLINICAL HISTORY: Dyspnea cough. COMPARISON: CHEST 1 VIEW 02/06/2019 11:13 AM. TECHNIQUE: 2 views. FINDINGS: Lungs/Pleura: Hyperinflated lungs with flattened diaphragm, suspect COPD. No consolidation, airspace disease, pleural effusion or pneumothorax. Mediastinum: Heart and mediastinal contours are unremarkable. Other: Upper abdomen surgical clips. IMPRESSION: COPD suspected. No acute findings are seen. RADIA
--- NOTE | 2019-03-01 18:52 | CT Report ---
Reason: IV only, vomiting Procedure Date: 03/01/2019 Accession Number: [id number] / [id number] Procedure: CT - Abdomen/Pelvis W CPT Code: FULL RESULT: EXAM: CT ABDOMEN AND PELVIS EXAM DATE: 03/01/2019 05:42 PM. CLINICAL HISTORY: IV only, vomiting. COMPARISONS: Chest x-ray 02/06/2019. TECHNIQUE: Routine helical CT imaging was performed through the abdomen and pelvis. IV contrast: OPTI 320 100ML. Enteric contrast: No. Reconstructions: Coronal and sagittal. In accordance with CT protocol optimization, one or more of the following dose reduction techniques were utilized for this exam: automated exposure control, adjustment of mA and/or KV based on patient size, or use of iterative reconstructive technique. FINDINGS: Lung Bases: Subsegmental atelectasis in lingula, right middle lobe and in left greater than right lower lobe. Mild fusiform bronchiectasis in left lower lobe. No pleural effusion. No pneumothorax. Heart size normal. Distended esophagus with air-fluid level. Hiatal hernia. Liver: Unremarkable Gallbladder/Bile Ducts: Mild gallbladder distention measuring up to 4 cm in diameter and 9 cm in length. No stones or wall thickening. No surrounding inflammatory change. Mild prominence of common bile duct measuring up to 9 mm in diameter. No radiopaque duct stone. Spleen: Unremarkable Pancreas: Unremarkable Adrenal Glands: Intermediate/nonspecific attenuation 18 mm diameter rounded left adrenal nodule, series 3 image 17. Adrenal glands otherwise unremarkable. Kidneys: Asymmetric small size of right kidney measuring approximately 8.4 cm long axis compared to more normal-appearing 11.2 cm left kidney. No hydronephrosis. Symmetric enhancement. No mass suspicious for neoplasm. No radiopaque stones. Ureters nondilated. Perinephric soft tissues unremarkable. Tiny probable kidney cysts. Peritoneal Cavity/Bowel: Colonic diverticula with sigmoid diverticulosis. No gross surrounding inflammatory change suspicious for acute diverticulitis. No free fluid, free air, abscess or obstruction. Postop change adjacent to cecum and postop change in upper abdomen adjacent to stomach. Appendix not seen. No adenopathy. Pelvic Organs: Soft tissue prominence not separable from urinary bladder wall posterior/ superior on the left with lobular contour. Uterus not clearly seen separate from this. No submitted history of hysterectomy or prior study for comparison. Possibility of bladder wall mass not excluded, sagittal image 27 coronal image 33. Overall assessment of bladder and pelvic structures limited by artifact from bilateral total hip replacements. Vasculature: Dense calcified atherosclerosis. No aneurysms . No varices. No arterial occlusion or acute vascular abnormality identified. Bones: Transitional vertebral segment lumbosacral junction referred to as L5. Degenerative grade 1 anterolisthesis L4 on L5. Biconcave L1 vertebral body with increased density and at least 50% height loss centrally. Pattern suggestive of nonacute compression fracture. No acute bone abnormality. No bone lesion suspicious for malignancy. Bilateral total hip replacements. Other: None. IMPRESSION: 1. Moderate-sized hiatal hernia with air and fluid filled distended lower thoracic esophagus. No discrete mass. No bowel obstruction. No definite acute bowel abnormality otherwise seen. 2. Distended gallbladder with nonspecific prominence of common bile duct. No radiopaque stones or surrounding inflammatory change on CT. Clinical correlation needed. 3. Nonspecific 18 mm left adrenal nodule. In a low-risk patient this most likely represents a benign adenoma. In a high-risk patient, Correlation with noncontrast CT, adrenal protocol CT or enhanced and unenhanced MRI could be considered for more complete characterization. 4. Prominent artifact from bilateral total hip replacements limits resolution in the pelvis. Soft tissue prominence posterior on the left involving urinary bladder wall may be due to volume averaging with uterus. Correlation with ultrasound could be considered to verify presence of uterus in this location. Urinary bladder wall mass is less likely but not excluded. 5. Examination otherwise as detailed above. RADIA
[2019-03-01 18:59] LABS: BILIRUBIN,URINE NEGATIVE (NEGATIVE); GLUCOSE, URINE (UA) NEGATIVE (NEGATIVE); KETONES,URINE (UA) 15 mg/dL (NEGATIVE); LEUKOCYTE ESTERASE, URINE NEGATIVE (NEGATIVE); NITRITE,URINE NEGATIVE (NEGATIVE); OCCULT BLOOD,URINE NEGATIVE (NEGATIVE); PH,URINE 5.5 PH (5.0-7.5); PROTEIN,URINE NEGATIVE (NEGATIVE); UROBILINOGEN,URINE 0.2 (NORMAL) E.U./dL (NORMAL)
[2019-03-01 19:00] LABS: CLARITY,URINE CLEAR (CLEAR)
[2019-03-01 19:57] VITALS: BP 136/76
== END 2019-03-01 20:05 | disposition home or self-care (01) ==
LOC: EDUNIT# → ED 16:01
DX: R11.2 Nausea with vomiting, unspecified (principal); J44.1 Chronic obstructive pulmonary disease with (acute) exacerbation; F17.200 Nicotine dependence, unspecified, uncomplicated; K44.9 Diaphragmatic hernia without obstruction or gangrene; E27.8 Other specified disorders of adrenal gland; K82.8 Other specified diseases of gallbladder; I10 Essential (primary) hypertension; R00.0 Tachycardia, unspecified; I45.10 Unspecified right bundle-branch block; Z96.643 Presence of artificial hip joint, bilateral; F03.90 Unspecified dementia, unspecified severity, without behavioral disturbance, psychotic disturbance, mood disturbance, and anxiety
CPT/HCPCS: 36415; 71046; 74177; 80053; 81003; 83605; 83690; 84484; 85025; 93005; 99281; 99284; Q9967; 81001; 87086

== ENCOUNTER 2021-02-22 13:21 | Outpatient (CLI) | payer MEDICARE, MEDICAID | END 2021-02-22 13:22 | disposition critical access hospital (66) | LOC: EMS 13:21 | DX: R41.82 Altered mental status, unspecified (principal); R06.2 Wheezing | CPT/HCPCS: A0425; A0427 ==

== ENCOUNTER 2021-02-22 13:38 | Emergency (ER) | payer MEDICARE, MEDICAID ==
--- NOTE | 2021-02-22 14:10 | XRAY Report ---
PROCEDURE: Chest 1 View X-Ray INDICATIONS: Chest pain TECHNIQUE: One view of the chest was acquired. COMPARISON: 03/01/2019 FINDINGS: Surgical changes and devices: None. Lungs and pleura: No pleural effusions or pneumothorax. Mild pulmonary vascular congestion is seen. No definite focal infiltrate. Mediastinum: Mediastinal contours appear normal. Heart size is enlarged. Bones and chest wall: No suspicious bony lesions. Overlying soft tissues appear unremarkable. IMPRESSION: Cardiomegaly and mild congestion. No definite focal infiltrate. No significant pleural effusion or pn eumothorax. Reviewed by: Julius Braun MD on 02/22/2021 2:08 PM PDT Approved by: Julius Braun MD on 02/22/2021 2:08 PM PDT Station ID: [id number]
[2021-02-22] MEDS ORDERED: IPRATROPIUM/ALBUTEROL 3 ML NEB INH STA (14:28)
[2021-02-22] MEDS ORDERED: methylPREDNISolone SUCCINATE 125 MG/2 ML VIAL IVP STA (14:28)
[2021-02-22] MEDS ORDERED: SODIUM CHLORIDE 0.9% 1,000 ML IV STA ×2 (14:29)
[2021-02-22 14:41] LABS: BASOPHILS % (AUTO) 0.2 %; EOSINOPHILS % (AUTO) 0.1 %; HCT - HEMATOCRIT 30.8 % (37.0-47.0); HGB - HEMOGLOBIN 8.8 g/dL (12.0-16.0); LYMPHOCYTES # (AUTO) 0.8 10^3/uL (1.5-3.5); LYMPHOCYTES % (AUTO) 4.6 %; MEAN CORPUSCULAR HEMOGLOBIN 22.9 pg (27.0-31.0); MEAN CORPUSCULAR HGB CONC 28.6 g/dL (32.0-36.0); MEAN PLATELET VOLUME 9.3 fL (7.9-10.8); MONOCYTES # (AUTO) 1.4 10^3/uL (0.0-1.0); MONOCYTES % (AUTO) 8.1 %; NEUTROPHILS # (AUTO) 14.7 10^3/uL (1.5-6.6); NRBC ABSOLUTE COUNT (AUTO) 0.08 x10^3/uL; NUCLEATED RED BLOOD CELLS AUTO 0.5 /100WBC; PLT - PLATELET COUNT 314 10^3/uL (130-450); RED BLOOD COUNT 3.85 10^6/uL (4.20-5.40); RED CELL DISTRIBUTION WIDTH 17.6 % (12.0-15.0); WHITE BLOOD COUNT 17.3 x10^3/uL (4.8-10.8)
[2021-02-22 14:43] LABS: SLIDE REVIEW? Indicated
[2021-02-22 14:54] LABS: PLATELET ESTIMATE, MANUAL NORMAL (130-450,000) (NORMAL); PLATELET MORPHOLOGY NORMAL APPEARANCE (NORMAL)
--- NOTE | 2021-02-22 14:56 | ED Physician Documentation ---
History of Present Illness - Stated complaint Stated Complaint: SOA - Chief complaint Chief Complaint: Resp - History obtained from History obtained from: EMS - History of Present Illness Timing: Today Pain level max: 0 Pain level now: 0 - Additonal information Additional information: Patient is a 70-year-old female who lives at [facility]. History of COPD and Parkinson's disease. Reportedly has not been taking her COPD medication for the past several days. Today the patient was found to be hypoxic and less responsive than usual. 911 was called and the patient was brought here. She was given a nebulizer treatment in route and is improved, though still drowsy. Patient unable to give any history. Unclear what her normal baseline is. The senior living that she lives that states that the patient is normally alert, independent ambulatory and a smoker. Review of Systems Unable to obtain: AMS PD PAST MEDICAL HISTORY - Past Medical History Cardiovascular: Hypertension Respiratory: COPD Neuro: Migraines Endocrine/Autoimmune: HyPOthyroidism GI: GERD Psych: Depression, Other - Past Surgical History General: Gastric surgery - Present Medications Home Medications: Ambulatory Orders Medication Instructions Recorded Confirmed Albuterol 3 ml INH Q4H PRN 02/03/19 02/22/21 Albuterol Sulfate [Albuterol 2 puffs INH QID PRN 02/03/19 02/22/21 Sulfate Hfa] Cholecalciferol (Vitamin D3) 1,000 unit PO DAILY 02/03/19 02/22/21 [Vitamin D3] Docusate Sodium 100 mg PO BID 02/03/19 02/22/21 Gabapentin 200 mg PO TID 02/03/19 02/22/21 Ipratropium [Atrovent] 0.2 mg INH QID 02/03/19 02/22/21 Levothyroxine [Synthroid] 25 mcg PO DAILY 02/03/19 02/22/21 Lovastatin 20 mg PO DAILY 02/03/19 02/22/21 Nortriptyline HCl 10 mg PO QPM 02/03/19 02/22/21 Senna [Senokot] 8.6 mg PO DAILY 02/03/19 02/22/21 buPROPion HCL [Bupropion Xl] 150 mg PO DAILY 02/03/19 02/22/21 Montelukast [Singulair] 10 mg PO QPM #30 tablet 02/08/19 02/22/21 Multivitamin [Theragran] 1 tab PO DAILYWM #30 tablet 02/08/19 02/22/21 Saccharomyces Boulardii [Daily 250 mg PO BID #28 capsule 02/08/19 02/22/21 Probiotic] Ondansetron Odt [Zofran] 4 mg TL Q6H PRN #10 tablet 03/01/19 02/22/21 Acetaminophen [Acetaminophen Extra 1 tab PRN PRN 02/22/21 02/22/21 Strength] Famotidine [Pepcid] 1 tab DAILY 02/22/21 02/22/21 Fluticasone [Flonase] 2 spray DAILY 02/22/21 02/22/21 Folic Acid/Vit B Complex and C 1 tab DAILY 02/22/21 02/22/21 [Ramandeep-Candice Tablet] Lactobacillus Combination No.4 1 cap DAILY 02/22/21 02/22/21 [Probiotic] Mirabegron [Myrbetriq] 1 tab DAILY 02/22/21 02/22/21 - Allergies Allergies/Adverse Reactions: Allergies Allergy/AdvReac Type Severity Reaction Status Date / Time Penicillins Allergy Unknown Verified 02/03/19 07:20 - Social History Does the pt smoke?: Yes Smoking Status: Current every day smoker Does the pt drink ETOH?: No Does the pt have substance abuse?: No - POLST Patient has POLST: No PD ED PE NORMAL - Vitals Vital signs reviewed: Yes - General General: No acute distress, Well developed/nourished, Other (drowsy, arousable, minimally verbal) - HEENT HEENT: Moist mucous membranes - Neck Neck: Supple, no meningeal sign - Cardiac Cardiac: RRR - Respiratory Respiratory: Other (wheezing B) - Abdomen Abdomen: Soft, Non tender, Non distended - Back Back: No spinal TTP - Derm Derm: Warm and dry - Extremities Extremities: No edema - Neuro Neuro: No motor deficit, No sensory deficit Results - Vitals Vitals: Vital Signs - 24 hr 02/22/21 02/22/21 02/22/21 13:39 14:00 14:30 Temperature 37.2 C Heart Rate 94 94 94 Respiratory 26 H 21 21 Rate Blood Pressure 177/80 H 167/81 H 158/84 H O2 Saturation 100 100 100 02/22/21 02/22/21 02/22/21 14:44 15:00 15:36 Temperature Heart Rate 90 98 96 Respiratory 24 29 H 19 Rate Blood Pressure 172/72 H 165/75 H O2 Saturation 100 100 02/22/21 02/22/21 02/22/21 16:00 16:30 17:30 Temperature Heart Rate 97 96 97 Respiratory 21 20 21 Rate Blood Pressure 142/102 H 133/80 H 155/77 H O2 Saturation 100 100 100 02/22/21 02/22/21 02/22/21 18:26 18:30 18:48 Temperature Heart Rate 98 99 101 H Respiratory 22 22 24 Rate Blood Pressure 148/82 H 148/86 H 148/86 H O2 Saturation 93 92 92 Oxygen O2 Source Nasal cannula Oxygen Flow Rate 3 - EKG (time done) 1344 Rate: Rate (enter#) (94) Rhythm: NSR Harold: Normal Intervals: Prolonged ID, RBBB - Labs Labs: Laboratory Tests 02/22/21 02/22/21 02/22/21 14:32 14:32 14:32 WBC 17.3 H RBC 3.85 L Hgb 8.8 L Hct 30.8 L MCV 80.0 L MCH 22.9 L MCHC 28.6 L RDW 17.6 H Plt Count 314 MPV 9.3 Neut # (Auto) 14.7 H Lymph # (Auto) 0.8 L Gallia # (Auto) 1.4 H Eos # (Auto) 0.0 Baso # (Auto) 0.0 Absolute Nucleated RBC 0.08 Nucleated RBC % 0.5 Manual Slide Review Indicated Platelet Estimate NORMAL (130-450,000) Platelet Morphology NORMAL APPEARANCE RBC Morph Micro Appear 1+ TARGET CELLS PT INR APTT Sodium 128 L Potassium 5.7 H Chloride 84 L Carbon Dioxide 31 Anion Gap 13.0 BUN 59 H Creatinine 2.5 H Estimated GFR (MDRD) 19 L Glucose 126 H Lactic Acid Calcium 7.5 L Total Bilirubin 1.5 H AST > 5200 H ALT 4776 H Alkaline Phosphatase 134 H Troponin I High Sens 1337.1 H* B-Natriuretic Peptide Total Protein 7.0 Albumin 3.9 Globulin 3.1 Albumin/Globulin Ratio 1.3 Lipase 24 Nasal Adenovirus (PCR) Nasal B. parapertussis DNA (PCR) Nasal Coronavir 229E PCR Nasal Coronavir HKU1 PCR Nasal Coronavir NL63 PCR Nasal Coronavir OC43 PCR Nasal Enterovir/Rhinovir PCR Nasal Influenza B PCR Nasal Influenza A PCR Nasal Parainfluen 1 PCR Nasal Parainfluen 2 PCR Nasal Parainfluen 3 PCR Nasal Parainfluen 4 PCR Nasal RSV (PCR) Nasal B.pertussis DNA PCR Nasal C.pneumoniae (PCR) Hema Human Metapneumo PCR Nasal M.pneumoniae (PCR) Nasal SARS-CoV-2 (PCR) Acetaminophen 02/22/21 02/22/21 02/22/21 14:32 14:32 14:32 WBC RBC Hgb Hct MCV MCH MCHC RDW Plt Count MPV Neut # (Auto) Lymph # (Auto) Gallia # (Auto) Eos # (Auto) Baso # (Auto) Absolute Nucleated RBC Nucleated RBC % Manual Slide Review Platelet Estimate Platelet Morphology RBC Morph Micro Appear PT 22.6 H INR 2.0 H APTT Sodium Potassium Chloride Carbon Dioxide Anion Gap BUN Creatinine Estimated GFR (MDRD) Glucose Lactic Acid 2.1 Calcium Total Bilirubin AST ALT Alkaline Phosphatase Troponin I High Sens B-Natriuretic Peptide 1782 H Total Protein Albumin Globulin Albumin/Globulin Ratio Lipase Nasal Adenovirus (PCR) Nasal B. parapertussis DNA (PCR) Nasal Coronavir 229E PCR Nasal Coronavir HKU1 PCR Nasal Coronavir NL63 PCR Nasal Coronavir OC43 PCR Nasal Enterovir/Rhinovir PCR Nasal Influenza B PCR Nasal Influenza A PCR Nasal Parainfluen 1 PCR Nasal Parainfluen 2 PCR Nasal Parainfluen 3 PCR Nasal Parainfluen 4 PCR Nasal RSV (PCR) Nasal B.pertussis DNA PCR Nasal C.pneumoniae (PCR) Hema Human Metapneumo PCR Nasal M.pneumoniae (PCR) Nasal SARS-CoV-2 (PCR) Acetaminophen 02/22/21 02/22/21 02/22/21 14:32 14:32 14:46 WBC RBC Hgb Hct MCV MCH MCHC RDW Plt Count MPV Neut # (Auto) Lymph # (Auto) Gallia # (Auto) Eos # (Auto) Baso # (Auto) Absolute Nucleated RBC Nucleated RBC % Manual Slide Review Platelet Estimate Platelet Morphology RBC Morph Micro Appear PT INR APTT 27.1 Sodium Potassium Chloride Carbon Dioxide Anion Gap BUN Creatinine Estimated GFR (MDRD) Glucose Lactic Acid Calcium Total Bilirubin AST ALT Alkaline Phosphatase Troponin I High Sens B-Natriuretic Peptide Total Protein Albumin Globulin Albumin/Globulin Ratio Lipase Nasal Adenovirus (PCR) NOT DETECTED Nasal B. parapertussis DNA (PCR) NOT DETECTED Nasal Coronavir 229E PCR NOT DETECTED Nasal Coronavir HKU1 PCR NOT DETECTED Nasal Coronavir NL63 PCR NOT DETECTED Nasal Coronavir OC43 PCR NOT DETECTED Nasal Enterovir/Rhinovir PCR NOT DETECTED Nasal Influenza B PCR NOT DETECTED Nasal Influenza A PCR NOT DETECTED Nasal Parainfluen 1 PCR NOT DETECTED Nasal Parainfluen 2 PCR NOT DETECTED Nasal Parainfluen 3 PCR NOT DETECTED Nasal Parainfluen 4 PCR NOT DETECTED Nasal RSV (PCR) NOT DETECTED Nasal B.pertussis DNA PCR NOT DETECTED Nasal C.pneumoniae (PCR) NOT DETECTED Hema Human Metapneumo PCR NOT DETECTED Nasal M.pneumoniae (PCR) NOT DETECTED Nasal SARS-CoV-2 (PCR) NOT DETECTED Acetaminophen < 10 L - Rads (name of study) cxr Radiology: Final report received, EMP read contemporaneously, See rad report (Cardiomegaly and mild congestion. No definite focal infiltrate. No significant pleural effusion or pneumothorax. ) PD MEDICAL DECISION MAKING - ED course Complexity details: reviewed results, re-evaluated patient, considered differential, d/w patient ED course: 70-year-old female presents to the emergency department what appears to be a COPD exacerbation. Her troponin is found to be significantly elevated as well. She does appear to be in acute liver failure and likely heart failure as well. Possible that she had an WI a day or 2 ago and now has liver dysfunction secondary to right heart failure. Her vital signs here are stable, she is still drowsy. Dr. Bhat, cardiology at [facility], states he will be happy to consult on the patient And recommends transfer to the hospitalist for admission. Dr. Duffy, hospitalist at [facility] graciously accepts in transfer. COBRA forms completed. Placed on a heparin drip. This document was made in part using voice recognition software. While efforts are made to proofread this document, sound alike and grammatical errors may occur. Departure - Departure Disposition: 02 Transfer Acute Care Hosp Clinical Impression: NSTEMI (non-ST elevated myocardial infarction), COPD with exacerbation, Hyponatremia, Acute renal insufficiency Liver failure Qualifiers: Liver failure chronicity: unspecified chronicity Hepatic coma status: without hepatic coma Qualified Code(s): K72.90 - Hepatic failure, unspecified without coma Heart failure Qualifiers: Heart failure type: unspecified Heart failure chronicity: unspecified Qualified Code(s): I50.9 - Heart failure, unspecified Condition: Stable
[2021-02-22 15:31] LABS: ALBUMIN 3.9 g/dL (3.2-5.5); ALBUMIN/GLOBULIN RATIO 1.3 (1.0-2.2); ALKALINE PHOSPHATASE 134 IU/L (42-121); ALT ALANINE AMINOTRANSFERASE 4776 IU/L (10-60); AST ASPARTATE AMINOTRANSFERASE > 5200 IU/L (10-42); BILIRUBIN,TOTAL 1.5 mg/dL (0.2-1.0); BUN - BLOOD UREA NITROGEN 59 mg/dL (6-20); CALCIUM 7.5 mg/dL (8.5-10.3); CARBON DIOXIDE - CO2 31 mmol/L (21-32); CHLORIDE 84 mmol/L (101-111); CREATININE 2.5 mg/dL (0.4-1.0); GFR - MDRD 19 (>89); GLUCOSE 126 mg/dL (70-100); LIPASE 24 U/L (22-51); POTASSIUM 5.7 mmol/L (3.5-5.0); SODIUM 128 mmol/L (135-145)
[2021-02-22 15:49] LABS: B. PARAPERTUSSIS- RESP PCR PAN NOT DETECTED; B. PERTUSSIS- RESP PCR PANEL NOT DETECTED; C. PNEUMONIAE- RESP PCR PANEL NOT DETECTED; CORONAVIRUS 229E-RESP PCR NOT DETECTED; CORONAVIRUS HKU1-RESP PCR NOT DETECTED; CORONAVIRUS NL63-RESP PCR NOT DETECTED; CORONAVIRUS OC43-RESP PCR NOT DETECTED; HUMAN METAPNEUMOVIRUS NOT DETECTED; INFLUENZA A- RESP PCR PANEL NOT DETECTED; INFLUENZA B - RESP PCR PANEL NOT DETECTED; M. PNEUMONIAE- RESP PCR PANEL NOT DETECTED; PARAINFLUENZA VIRUS 1 NOT DETECTED; PARAINFLUENZA VIRUS 2 NOT DETECTED; PARAINFLUENZA VIRUS 3 NOT DETECTED; PARAINFLUENZA VIRUS 4 NOT DETECTED; RHINOVIRUS/ENTEROVIRUS NOT DETECTED; RSV- RESP PCR PANEL NOT DETECTED; SARS-CoV-2 -RESP PCR PANEL NOT DETECTED
[2021-02-22 17:07] LABS: PT - PROTHROMBIN TIME 22.6 secs (9.9-12.6)
[2021-02-22] MEDS ORDERED: HEPARIN 25000UNITS/500ML (D5W) 25,000 UNIT/500 ML BAG IV SCH (18:00)
[2021-02-22 21:13] VITALS: BP 139/78
== END 2021-02-22 21:25 | disposition short-term general hospital (02) ==
LOC: EDUNIT# → ED 13:38
DX: I21.4 Non-ST elevation (NSTEMI) myocardial infarction (principal); I50.810 Right heart failure, unspecified; I11.0 Hypertensive heart disease with heart failure; J44.1 Chronic obstructive pulmonary disease with (acute) exacerbation; N17.9 Acute kidney failure, unspecified; K72.00 Acute and subacute hepatic failure without coma; E87.1 Hypo-osmolality and hyponatremia; Z20.822 Contact with and (suspected) exposure to COVID-19; G20 Parkinson's disease; I45.10 Unspecified right bundle-branch block; F17.200 Nicotine dependence, unspecified, uncomplicated
CPT/HCPCS: 0202U; 36415; 80053; 80307; 83605; 83690; 83880; 84484; 85025; 85610; 85730; 87040; 93005; 94640; 96365; 96366; 96375; 96376; 99285